=== PATIENT | female | born 1970 ===

== ENCOUNTER 2022-11-19 14:41 | Emergency (ER) | payer OTHER, SELFPAY ==
--- NOTE | ~2022-11-19 | XR_ITS ---
EXAMINATION: XR CHEST CLINICAL INFORMATION: Cough. COMPARISON: None TECHNIQUE: 2 views of the chest were obtained. FINDINGS: No significant abnormality is noted involving the heart, lungs, mediastinum, bony thorax or soft tissues. XR/XR chest 2V IMPRESSION: Unremarkable chest examination.
--- NOTE | 2022-11-19 14:55 | ED_ITS ---
HPI - General Adult General Chief complaint: Upper Respiratory Symptoms <KYLE Leggett - Last Filed: 11/19/22 14:57> Stated complaint: vomiting diarrhea weak rib pain <KYLE Leggett Last Filed: 11/19/22 14:57> Time Seen by Provider: 11/19/22 15:06 <KYLE Leggett Last Filed: 11/19/22 14:57> Source: patient <KYLE Mishra Last Filed: 11/19/22 16:44> Mode of arrival: ambulatory <KYLE Mishra Last Filed: 11/19/22 16:44> History of Present Illness HPI narrative: 52-year-old female with no significant past medical history presenting to the ED complaining dry cough, chills, subjective fever, myalgias, nausea, and vomiting x3 days with decreased p.o. intake. Reports SOB. Denies chest pain, d iarrhea, abdominal pain, dysuria/hematuria, recent travel, sick contacts. <KYLE Mishra Last Filed: 11/19/22 16:44> Onset (ago): day(s) <KYLE Mishra Last Filed: 11/19/22 16:44> Related Data Home medications: Previous Rx's Medication Instructions Recorded acetaminophen 500 mg tablet 500 mg PO Q6H PRN fever or pain 11/19/22 (Tylenol Extra Strength) #14 tabs benzonatate 100 mg capsule 100 mg PO TID PRN cough #14 caps 11/19/22 fluticasone propionate 50 2 spray intranasal DAILY #16 grams 11/19/22 mcg/actuation nasal spray,suspension (Flonase Allergy Relief) ondansetron 4 mg disintegrating 4 mg PO Q8H PRN nausea and 11/19/22 tablet vomiting #10 tabs <KYLE Leggett Last Filed: 11/19/22 14:57> Allergies/adverse reactions: Allergies Allergy/AdvReac Type Severity Reaction Status Date / Time No Known Allergies Allergy Verified 11/19/22 14:56 <KYLE Leggett Last Filed: 11/19/22 14:57> Review of Systems Review of Systems: Constitutional: +Subj Fever, + Chills, +Fatigue ENT/Mouth: No Ear Pain, No Nasal Congestion, No Sinus Pain, No Hoarseness, No sore throat, No Rhinorrhea, No Swallowing Difficulty Cardiovascular: No Chest Pain, + SOB Respiratory: + Cough, No Sputum, No Wheezing Gastrointestinal: + Nausea, + Vomiting, No Diarrhea, No Constipation, No Abdominal pain Genitourinary: No Dysuria, No Urinary Frequency, No Hematuria, No Flank Pain Musculoskeletal: No joint pain, + Myalgias, No Joint Swelling Skin: No Skin Lesions, No rash Neuro: No Weakness, No Numbness, No Paresthesias <KYLE Mishra - Last Filed: 11/19/22 16:44> Yes all other systems are reviewed and are negative <KYLE Mishra - Last Filed: 11/19/22 16:44> Constitutional: Constitutional: Reports as per HPI <KYLE Mishra - Last Filed: 11/19/22 16:44> PMFSH Past Medical History Attestation statement: The following information was validated with the patient. <KYLE Mishra - Last Filed: 11/19/22 16:44> Social History Social History: Social History Alcohol intake: unknown Smoked in Last 30 Days: No Use of substances other than those prescribed or required for medical reasons: Unknown Advance Directives: No Advance Directives Information Provided: No Patient : No <KYLE Leggett - Last Filed: 11/19/22 14:57> Physical Exam ED Vital Signs: Vital Signs - 24 hr 11/19/22 14:57 11/19/22 16:21 11/19/22 16:24 Temperature 97.0 F 98.2 F Pulse Rate 98 88 96 Respiratory Rate 18 18 20 Blood Pressure 133/88 136/84 Pulse Oximetry 100 99 Oxygen Delivery Method Room Air Room Air BMI result Body Mass Index 23.9 <KYLE Leggett - Last Filed: 11/19/22 14:57> Vital Signs - 24 hr 11/19/22 14:57 11/19/22 16:21 11/19/22 16:24 Temperature 97.0 F 98.2 F Pulse Rate 98 88 96 Respiratory Rate 18 18 20 Blood Pressure 133/88 136/84 Pulse Oximetry 100 99 Oxygen Delivery Method Room Air Room Air BMI result Body Mass Index 23.9 <KYLE Mishra - Last Filed: 11/19/22 16:44> Const General: cooperative, healthy appearing and no acute distress <KYLE Mishra - Last Filed: 11/19/22 16:44> Orientation/consciousness: patient oriented x3 <KYLE Mishra - Last Filed: 11/19/22 16:44> Limitations: no limitations <KYLE Mishra - Last Filed: 11/19/22 16:44> HENMT Head: Yes normal to inspection and Yes atraumatic <KYLE Mishra - Last Filed: 11/19/22 16:44> Ears: hearing grossly normal bilaterally <KYLE Mishra - Last Filed: 11/19/22 16:44> General nose exam: Normal external nose present <KYLE Mishra - Last Filed: 11/19/22 16:44> Face and sinus: Yes normal facial exam <KYLE Mishra - Last Filed: 11/19/22 16:44> Throat: Yes posterior oropharynx normal, Yes tonsils normal and Yes uvula midline <KYLE Mishra - Last Filed: 11/19/22 16:44> Eyes General: appearance normal, both eyes and all related structures <KYLE Mishra - Last Filed: 11/19/22 16:44> EOM: EOMs intact bilaterally <KYLE Mishra - Last Filed: 11/19/22 16:44> Neck Neck: Yes normal visual inspection and Yes no meningeal signs <KYLE Mishra - Last Filed: 11/19/22 16:44> Resp Effort & Inspection: normal respiratory effort and no respiratory distress <KYLE Mishra - Last Filed: 11/19/22 16:44> Auscultation: clear to auscultation bilaterally, no crackles, no rales, no rhonchi and no wheezes <KYLE Mishra Last Filed: 11/19/22 16:44> Cardio Rate: regular rate <KYLE Mishra - Last Filed: 11/19/22 16:44> Heart sounds: S1 normal heart sound present and S2 normal heart sound present <KYLE Mishra Last Filed: 11/19/22 16:44> GI Inspection: Yes normal to inspection <KYLE Mishra Last Filed: 11/19/22 16:44> Palpation (GI): Soft to palpation, Tenderness to palpation present (GI) in the epigastrum; with no rebound tenderness, no guarding and not rigid <KYLE Mishra Last Filed: 11/19/22 16:44> Skin Rashes: no rashes <KYLE Mishra Last Filed: 11/19/22 16:44> Wounds: no wounds <KYLE Mishra - Last Filed: 11/19/22 16:44> Neuro General: patient oriented x3, tone normal and no meningeal signs <KYLE Mishra Last Filed: 11/19/22 16:44> Gait exam (Neuro): Normal gait present <KYLE Mishra - Last Filed: 11/19/22 16:44> Extrem General: Yes normal to inspection, Yes no pedal edema and Yes no calf tenderness <KYLE Mishra Last Filed: 11/19/22 16:44> Course Course Course Narrative: RME performed by Sharon Anton PA-C. Patient is a 52 year old female presenting to the ED with chills, cough, and feeling generally unwell. CXR, labs, and swab ordered. Patient placed back in waiting room pending results and room availability. <KYLE Leggett Last Filed: 11/19/22 14:57> RME performed by Sharon Anton PA-C. Patient is a 52 year old female presenting to the ED with chills, cough, and feeling generally unwell. CXR, labs, and swab ordered. Patient placed back in waiting room pending results and room availability. -no leukocytosis. AST/ALT mildly elevated -influenza A positive XR chest 2V IMPRESSION: Unremarkable chest examination. -Patient reports symptomatic improvement after medications given in the ED. Is tolerating p.o. without nausea or vomiting -Results discussed with patient including worrisome signs and symptoms and strict return precautions, and when to return to the emergency department. They verbalized understanding and feel safe for discharge at this time. <KYLE Mishra - Last Filed: 11/19/22 16:44> Medications Administered Generic Name Dose Route Start Last Admin Trade Name Freq PRN Reason Stop Dose Admin Sodium Chloride 1,000 mls @ 999 mls/hr 11/19/22 15:45 11/19/22 16:07 Ns IV 11/19/22 16:45 999 mls/hr .Q1H1M MAYDA Administration Discontinued Medications Generic Name Dose Route Start Last Admin Trade Name Freq PRN Reason Stop Dose Admin Al Hydroxide/Mg Hydroxide 30 ml 11/19/22 15:59 11/19/22 16:07 Magnesium Hydrox/Alum Hydrox 30 Ml Oral.Susp PO 11/19/22 16:00 30 ml ONCE ONE Administration Albuterol Sulfate 4 puff 11/19/22 15:48 11/19/22 16:20 Albuterol Sulfate 90 Mcg 8 Gm Inhaler INHALE 11/19/22 15:49 4 puff ONCE ONE Administration Benzonatate 100 mg 11/19/22 15:33 11/19/22 16:08 Benzonatate 100 Mg Capsule PO 11/19/22 15:34 100 mg ONCE ONE Administration Famotidine 20 mg 11/19/22 15:59 11/19/22 16:07 Famotidine/Pf 20 Mg/2 Ml Vial IVPUSH 11/19/22 16:00 20 mg ONCE ONE Administration Hydrocodone Bit/Homatropine Methylb 5 ml 11/19/22 15:33 11/19/22 16:07 Hydrocodone/Homat 5/1.5/5 Ml 5 Ml Syrup PO 11/19/22 15:34 5 ml ONCE ONE Administration Ondansetron HCl 4 mg 11/19/22 15:32 11/19/22 16:07 Ondansetron Hcl 4 Mg/2 Ml Vial IVPUSH 11/19/22 15:33 4 mg ONCE ONE Administration <KYLE Leggett - Last Filed: 11/19/22 14:57> Medications Administered Generic Name Dose Route Start Last Admin Trade Name Freq PRN Reason Stop Dose Admin Sodium Chloride 1,000 mls @ 999 mls/hr 11/19/22 15:45 11/19/22 16:07 Ns IV 11/19/22 16:45 999 mls/hr .Q1H1M MAYDA Administration Discontinued Medications Generic Name Dose Route Start Last Admin Trade Name Aimee PRN Reason Stop Dose Admin Al Hydroxide/Mg Hydroxide 30 ml 11/19/22 15:59 11/19/22 16:07 Magnesium Hydrox/Alum Hydrox 30 Ml Oral.Susp PO 11/19/22 16:00 30 ml ONCE ONE Administration Albuterol Sulfate 4 puff 11/19/22 15:48 11/19/22 16:20 Albuterol Sulfate 90 Mcg 8 Gm Inhaler INHALE 11/19/22 15:49 4 puff ONCE ONE Administration Benzonatate 100 mg 11/19/22 15:33 11/19/22 16:08 Benzonatate 100 Mg Capsule PO 11/19/22 15:34 100 mg ONCE ONE Administration Famotidine 20 mg 11/19/22 15:59 11/19/22 16:07 Famotidine/Pf 20 Mg/2 Ml Vial IVPUSH 11/19/22 16:00 20 mg ONCE ONE Administration Hydrocodone Bit/Homatropine Methylb 5 ml 11/19/22 15:33 11/19/22 16:07 Hydrocodone/Homat 5/1.5/5 Ml 5 Ml Syrup PO 11/19/22 15:34 5 ml ONCE ONE Administration Ondansetron HCl 4 mg 11/19/22 15:32 11/19/22 16:07 Ondansetron Hcl 4 Mg/2 Ml Vial IVPUSH 11/19/22 15:33 4 mg ONCE ONE Administration <KYLE Mishra - Last Filed: 11/19/22 16:44> Medical Decision Making Medical Decision Making MDM Narrative: 52-year-old female with no significant past medical history presenting to the ED complaining dry cough, chills, subjective fever, myalgias, nausea, and vomiting x3 days with decreased p.o. intake. On exam vital signs stable, NAD/nontoxic appearing, lungs CTA, abdomen soft with mild epigastric abdominal pain, no rebound or guarding, no pedal edema. Concern for viral illness and gastroenteritis vs GERD/gastritis. Lower suspicion for cholecysti tis/cholelithiasis or pancreatitis. Low suspicion for pneumonia, PE, ACS or appendicitis/diverticulitis Plan: EKG, labs, UA, COVID-19/influenza/RSV testing, CXR, PO Hycodan, Tessalon Perles, albuterol, Zofran, p.o. challenge Please refer to course for remaining clinical decision making, interpretation of labs/imaging results, and discussions with consultants and/or family members. <KYLE Mishra - Last Filed: 11/19/22 16:44> Differential Diagnosis Differential Diagnoses: The differential diagnosis associated with the presentation includes <KYLE Mishra - Last Filed: 11/19/22 16:44> As above <KYLE Mishra - Last Filed: 11/19/22 16:44> Lab Data MDM Lab Attestation statement: I reviewed the patient's lab results. <KYLE Mishra - Last Filed: 11/19/22 16:44> Result Diagrams: 11/19/22 15:12 11/19/22 15:12 <KYLE Leggett - Last Filed: 11/19/22 14:57> Labs: Lab Results 11/19/22 11/19/22 11/19/22 Range/Units 15:12 15:12 15:12 WBC 5.5 (4.8-10.8) X10*3/uL RBC 5.15 (4.20-5.50) X10*6/uL Hgb 12.9 (12.0-16.0) g/dl Hct 40.7 (37.0-47.0) % MCV 79.0 L (80.0-98.0) fL MCH 25.0 L (27.0-33.0) pg MCHC 31.7 (31.0-35.0) g/dl RDW 14.3 (11.0-16.0) % Plt Count 220 (160-400) X10*3/uL MPV 12.1 (9.4-12.3) fL Immature Gran % (Auto) 0.2 (0.0-0.4) % Neut % (Auto) 55.8 (45-73) % Lymph % (Auto) 31.7 (20-40) % Ross % (Auto) 11.9 H (2-11) % Eos % (Auto) 0.2 (0-4) % Baso % (Auto) 0.2 (0-2) % Lymph # (Auto) 1.7 (1.2-4.9) X10*3/uL Ross # (Auto) 0.7 (0.1-1.2) X10*3/uL Eos # (Auto) 0.0 (0.0-0.4) X10*3/uL Baso # (Auto) 0.0 (0.0-0.2) X10*3/uL Abs Immat Gran (auto) 0.01 (0.00-0.03) X10*3/uL Absolute Neuts (auto) 3.1 (2.0-8.3) x10*3/uL Absolute Nucleated RBC 0.000 (0.0-0.012) X10*3/uL Nucleated RBC % (auto) 0.0 (0.0-0.2) /100WBC Sodium 140 (135-145) mmol/L Potassium 3.5 (3.3-5.1) mmol/L Chloride 107 (96-108) mmol/L Carbon Dioxide 22 (22-29) mmol/L Anion Gap 15 (12-20) BUN 13 (9-16) mg/dL Creatinine 0.74 (0.5-1.4) mg/dL Estim Creat Clear Calc 73.5 Estimated GFR > 60 Random Glucose 106 (60-115) mg/dL Calcium 9.2 (8.4-10.2) mg/dL Magnesium 1.8 (1.6-2.6) mg/dL Total Bilirubin 0.4 (0.0-1.0) mg/dL AST 96 H (5-31) U/L ALT 98 H (0-31) U/L Alkaline Phosphatase 98 (39-117) U/L Troponin I High Sens (<3.5-17.0) ng/L Total Protein 8.1 H (6.5-8.0) g/dL Albumin 4.4 (3.5-5.0) g/dL Lipase 14 (8-78) U/L Influenza Type A (PCR) POSITIVE A (Negative) Influenza Type B (PCR) NEGATIVE (Negative) RSV RNA Qual (PCR) NEGATIVE (Negative) SARS-CoV-2 RNA (RT-PCR) NEGATIVE (Negative) 11/19/22 Range/Units 15:12 WBC (4.8-10.8) X10*3/uL RBC (4.20-5.50) X10*6/uL Hgb (12.0-16.0) g/dl Hct (37.0-47.0) % MCV (80.0-98.0) fL MCH (27.0-33.0) pg MCHC (31.0-35.0) g/dl RDW (11.0-16.0) % Plt Count (160-400) X10*3/uL MPV (9.4-12.3) fL Immature Gran % (Auto) (0.0-0.4) % Neut % (Auto) (45-73) % Lymph % (Auto) (20-40) % Ross % (Auto) (2-11) % Eos % (Auto) (0-4) % Baso % (Auto) (0-2) % Lymph # (Auto) (1.2-4.9) X10*3/uL Ross # (Auto) (0.1-1.2) X10*3/uL Eos # (Auto) (0.0-0.4) X10*3/uL Baso # (Auto) (0.0-0.2) X10*3/uL Abs Immat Gran (auto) (0.00-0.03) X10*3/uL Absolute Neuts (auto) (2.0-8.3) x10*3/uL Absolute Nucleated RBC (0.0-0.012) X10*3/uL Nucleated RBC % (auto) (0.0-0.2) /100WBC Sodium (135-145) mmol/L Potassium (3.3-5.1) mmol/L Chloride (96-108) mmol/L Carbon Dioxide (22-29) mmol/L Anion Gap (12-20) BUN (9-16) mg/dL Creatinine (0.5-1.4) mg/dL Estim Creat Clear Calc Estimated GFR Random Glucose (60-115) mg/dL Calcium (8.4-10.2) mg/dL Magnesium (1.6-2.6) mg/dL Total Bilirubin (0.0-1.0) mg/dL AST (5-31) U/L ALT (0-31) U/L Alkaline Phosphatase (39-117) U/L Troponin I High Sens < 3.5 (<3.5-17.0) ng/L Total Protein (6.5-8.0) g/dL Albumin (3.5-5.0) g/dL Lipase (8-78) U/L Influenza Type A (PCR) (Negative) Influenza Type B (PCR) (Negative) RSV RNA Qual (PCR) (Negative) SARS-CoV-2 RNA (RT-PCR) (Negative) <KYLE Leggett - Last Filed: 11/19/22 14:57> Lab Results 11/19/22 11/19/22 11/19/22 Range/Units 15:12 15:12 15:12 WBC 5.5 (4.8-10.8) X10*3/uL RBC 5.15 (4.20-5.50) X10*6/uL Hgb 12.9 (12.0-16.0) g/dl Hct 40.7 (37.0-47.0) % MCV 79.0 L (80.0-98.0) fL MCH 25.0 L (27.0-33.0) pg MCHC 31.7 (31.0-35.0) g/dl RDW 14.3 (11.0-16.0) % Plt Count 220 (160-400) X10*3/uL MPV 12.1 (9.4-12.3) fL Immature Gran % (Auto) 0.2 (0.0-0.4) % Neut % (Auto) 55.8 (45-73) % Lymph % (Auto) 31.7 (20-40) % Ross % (Auto) 11.9 H (2-11) % Eos % (Auto) 0.2 (0-4) % Baso % (Auto) 0.2 (0-2) % Lymph # (Auto) 1.7 (1.2-4.9) X10*3/uL Ross # (Auto) 0.7 (0.1-1.2) X10*3/uL Eos # (Auto) 0.0 (0.0-0.4) X10*3/uL Baso # (Auto) 0.0 (0.0-0.2) X10*3/uL Abs Immat Gran (auto) 0.01 (0.00-0.03) X10*3/uL Absolute Neuts (auto) 3.1 (2.0-8.3) x10*3/uL Absolute Nucleated RBC 0.000 (0.0-0.012) X10*3/uL Nucleated RBC % (auto) 0.0 (0.0-0.2) /100WBC Sodium 140 (135-145) mmol/L Potassium 3.5 (3.3-5.1) mmol/L Chloride 107 (96-108) mmol/L Carbon Dioxide 22 (22-29) mmol/L Anion Gap 15 (12-20) BUN 13 (9-16) mg/dL Creatinine 0.74 (0.5-1.4) mg/dL Estim Creat Clear Calc 73.5 Estimated GFR > 60 Random Glucose 106 (60-115) mg/dL Calcium 9.2 (8.4-10.2) mg/dL Magnesium 1.8 (1.6-2.6) mg/dL Total Bilirubin 0.4 (0.0-1.0) mg/dL AST 96 H (5-31) U/L ALT 98 H (0-31) U/L Alkaline Phosphatase 98 (39-117) U/L Troponin I High Sens (<3.5-17.0) ng/L Total Protein 8.1 H (6.5-8.0) g/dL Albumin 4.4 (3.5-5.0) g/dL Lipase 14 (8-78) U/L Influenza Type A (PCR) POSITIVE A (Negative) Influenza Type B (PCR) NEGATIVE (Negative) RSV RNA Qual (PCR) NEGATIVE (Negative) SARS-CoV-2 RNA (RT-PCR) NEGATIVE (Negative) 11/19/22 Range/Units 15:12 WBC (4.8-10.8) X10*3/uL RBC (4.20-5.50) X10*6/uL Hgb (12.0-16.0) g/dl Hct (37.0-47.0) % MCV (80.0-98.0) fL MCH (27.0-33.0) pg MCHC (31.0-35.0) g/dl RDW (11.0-16.0) % Plt Count (160-400) X10*3/uL MPV (9.4-12.3) fL Immature Gran % (Auto) (0.0-0.4) % Neut % (Auto) (45-73) % Lymph % (Auto) (20-40) % Ross % (Auto) (2-11) % Eos % (Auto) (0-4) % Baso % (Auto) (0-2) % Lymph # (Auto) (1.2-4.9) X10*3/uL Ross # (Auto) (0.1-1.2) X10*3/uL Eos # (Auto) (0.0-0.4) X10*3/uL Baso # (Auto) (0.0-0.2) X10*3/uL Abs Immat Gran (auto) (0.00-0.03) X10*3/uL Absolute Neuts (auto) (2.0-8.3) x10*3/uL Absolute Nucleated RBC (0.0-0.012) X10*3/uL Nucleated RBC % (auto) (0.0-0.2) /100WBC Sodium (135-145) mmol/L Potassium (3.3-5.1) mmol/L Chloride (96-108) mmol/L Carbon Dioxide (22-29) mmol/L Anion Gap (12-20) BUN (9-16) mg/dL Creatinine (0.5-1.4) mg/dL Estim Creat Clear Calc Estimated GFR Random Glucose (60-115) mg/dL Calcium (8.4-10.2) mg/dL Magnesium (1.6-2.6) mg/dL Total Bilirubin (0.0-1.0) mg/dL AST (5-31) U/L ALT (0-31) U/L Alkaline Phosphatase (39-117) U/L Troponin I High Sens < 3.5 (<3.5-17.0) ng/L Total Protein (6.5-8.0) g/dL Albumin (3.5-5.0) g/dL Lipase (8-78) U/L Influenza Type A (PCR) (Negative) Influenza Type B (PCR) (Negative) RSV RNA Qual (PCR) (Negative) SARS-CoV-2 RNA (RT-PCR) (Negative) <KYLE Mishra Last Filed: 11/19/22 16:44> Independent Interpretation I performed an independent interpretation of an: EKG <KYLE Mishra - Last Filed: 11/19/22 16:44> Radiology Impression Discussion of test interpretation with radiology: I have reviewed the radiologist's reading. <KYLE Mishra - Last Filed: 11/19/22 16:44> Independent Historian Clinical information obtained from an independent historian. History obtained from or confirmed by: Spouse <KYLE Mishra - Last Filed: 11/19/22 16:44> Prescription Management I considered prescription management with: Pain Medication, Antiviral and Antibiotic <KYLE Mishra Last Filed: 11/19/22 16:44> Discharge Plan Discharge Clinical Impression: Influenza A <KYLE Leggett - Last Filed: 11/19/22 14:57> Patient Disposition: Home, Self-Care <KYLE Leggett - Last Filed: 11/19/22 14:57> Instructions: Influenza (ED) <KYLE Leggett - Last Filed: 11/19/22 14:57> Additional Instructions: You have the flu. Please stay hydrated. Rest. Avoid contact with elderly, people, and baby's Zofran as antinausea medication take as needed Tessalon Perles are for cough. Flonase is a nasal decongestant Please continue to follow cold instructions and wash your hands frequently. You may take Tylenol / Motrin as directed on the bottle for pain or fever. If you have constant or persistent shortness of breath, fever unresolved with medications, chest pain, or your unable to eat or drink please return to the ED - Stay away from others - WEAR A MASK if you are sick AND STAY HOME - Cover your mouth and nose with a tissue when you cough or sneeze. Dispose of tissues in a lined trash can and wash your hands immediately with soap and water for at least 20 seconds. If soap and water are not available, clean hands with alcohol-based hand sdv pilot/navigator/dds operator that contains at least 60% alcohol. - Clean your hands often with soap and water for at least 20 seconds - Avoid touching your eyes, nose and mouth with unwashed hands - Do not share dishes, drinking glasses, cups, eating utensils, towels, or bedding with other people in your home. After using these items, wash them thoroughly with soap and water or put in the manager photography. <KYLE Leggett - Last Filed: 11/19/22 14:57> Prescriptions: New acetaminophen [Tylenol Extra Strength] 500 mg tablet 500 mg PO Q6H PRN (Reason: fever or pain) Qty: 14 0RF benzonatate 100 mg capsule 100 mg PO TID PRN (Reason: cough) Qty: 14 0RF fluticasone propionate [Flonase Allergy Relief] 50 mcg/actuation spray,suspension 2 spray intranasal DAILY Qty: 16 0RF Rx Instructions: administer into each nostril ondansetron 4 mg tablet,disintegrating 4 mg PO Q8H PRN (Reason: nausea and vomiting) Qty: 10 0RF <KYLE Leggett - Last Filed: 11/19/22 14:57> Referrals: Physician,Unknown J [Primary Care Provider] - (as needed) <KYLE Leggett - Last Filed: 11/19/22 14:57>
[2022-11-19 14:57] VITALS: BP 133/88; PULSE 98; RESP 18; TEMP 36.1; O2SAT 100; BMI 23.9
[2022-11-19 15:25] LABS: MANUAL DIFF FLAG NO
[2022-11-19 15:27] LABS: Basophils Percent Auto 0.2 % (0-2); Eosinophils Percent Auto 0.2 % (0-4); Hematocrit 40.7 % (37.0-47.0); Hemoglobin 12.9 g/dl (12.0-16.0); Imm Gran Abs Auto 0.01 X10*3/uL (0.00-0.03); Imm Gran Pct Auto 0.2 % (0.0-0.4); Lymphocytes Absolute Auto 1.7 X10*3/uL (1.2-4.9); Lymphocytes Percent Auto 31.7 % (20-40); Mean Corpuscular HGB Conc 31.7 g/dl (31.0-35.0); Mean Platelet Volume 12.1 fL (9.4-12.3); Monocytes Absolute Auto 0.7 X10*3/uL (0.1-1.2); Monocytes Percent Auto 11.9 % (2-11); Neutrophils Absolute Auto 3.1 x10*3/uL (2.0-8.3); Neutrophils Percent Auto 55.8 % (45-73); Platelet Count 220 X10*3/uL (160-400); Red Blood Count 5.15 X10*6/uL (4.20-5.50); Red Cell Distribution Width 14.3 % (11.0-16.0); White Blood Count 5.5 X10*3/uL (4.8-10.8)
--- NOTE | 2022-11-19 15:32 | ECG_ITS ---
Test Reason : sob Blood Pressure : / mmHG Vent. Rate : 084 BPM Atrial Rate : 084 BPM P-R Int : 162 ms QRS Dur : 090 ms QT Int : 384 ms P-R-T Axes : 051 011 022 degrees QTc Int : 453 ms Normal sinus rhythm Minimal voltage criteria for LVH, may be normal variant ( [place] product ) Borderline ECG No previous ECGs available Referred By: Nohemi Mckeon Electronically Signed By:JOSH CHEEMA
[2022-11-19 15:47] LABS: Alanine Aminotransferase 98 U/L (0-31); Albumin Level 4.4 g/dL (3.5-5.0); Alkaline Phosphatase 98 U/L (39-117); Anion Gap 15 (12-20); Aspartate Amino Transferase 96 U/L (5-31); Bilirubin Total 0.4 mg/dL (0.0-1.0); Blood Urea Nitrogen 13 mg/dL (9-16); Calcium 9.2 mg/dL (8.4-10.2); Carbon Dioxide 22 mmol/L (22-29); Chloride 107 mmol/L (96-108); Creatinine Clr Calc Pharmacy 73.5; Estimated Glomerular Filt Rate > 60; Glucose Random 106 mg/dL (60-115); Magnesium 1.8 mg/dL (1.6-2.6); Potassium 3.5 mmol/L (3.3-5.1); Sodium 140 mmol/L (135-145); Total Protein 8.1 g/dL (6.5-8.0)
--- OUTSIDE RECORDS SUMMARY | 2022-11-19 16:01 | XMS_ITS | Continuity of Care Document ---
:1970 Author Organization [facility] Kerry Mendozas Sherifu p Address [address] [place] [address], [address] [place] [id number]- Care Team Providers Name Role Phone Not on Staff, PCP Primary Care Physician Unavailable Encounter [facility] [place] Date(s): 10/14/22 - 11/13/22 [facility] [address] [place] [address], [address] [place] [id number] Allergies, Adverse Reactions, Alerts No Known Allergies Immunizations Given and Recorded Vaccine Date Status Refusal Reason tetanus-diphtheria toxoids (Td)1 01/10/11 Given influenza virus vaccine, inactivated2 01/10/11 Given 1Admin Note: vis 04/22/942Admin Note: VIS 06/22/10 Medications ibuprofen 600 mg oral tablet 1 tablet = 600 mg, By Mouth, Every 6 hours, # 40 tablet, 0 Refills, Maintenance, 06/19/14 11:36:28, Tablet Start Date: 06/19/14 Status: Orderedoxycodone 5 mg oral tablet 1 tablet = 5 mg, By Mouth, Every 6 hours, PRN for pain, # 10 tablet, 0 Refills, Maintenance, 06/19/14 11:36:52, Tablet Start Date: 06/19/14 Status: OrderedProvera 10 mg oral tablet 1 tablet = 10 mg, By Mouth, Daily, # 10 tablet, 0 Refills, Maintenance, 05/19/15 16:40:32, 1 tablet By Mouth Daily,x10 days Start Date: 05/19/15 Stop Date: 05/29/15 Status: OrderedSeasonale 0.15 mg-30 mcg oral tablet 1 tablet, By Mouth, Daily, # 91 tablet, 0 Refills, Maintenance, 06/12/15 14:36:09, Tablet, 1 tablet By Mouth Daily Start Date: 06/12/15 Status: Orderedvaporizer vaporizer, See Instructions, # 1 each, Refills 0, Tot. Refills 0, Maintenance, nasal congestion: useas necessary, 01/24/11 15:25:40 Start Date: 01/24/11 Status: OrderedVitamin D3 50,000 intl units oral capsule 1 capsule = 50,000 International_Units, By Mouth, Every week, # 8 capsule, 0 Refills, Maintenance, 02/13/14 16:43:07, Capsule, 1 capsule By Mouth Every week,x8 week(s) Start Date: 02/13/14 Stop Date: 04/10/14 Status: Ordered Problem List Condition Confirmation Course Effective Dates Status Health Stat us Informant Healthy female Confirmed Active adult Social History Social History Type Response Smoking Status Former smoker; Other: quit a t age 25.; entered on: 05/19/15 Sex Patient Care team information Care Team PersonnelName: Not on Staff, PCP Position: S Physician (General Medicine) Member Role: PCP Care Team Related PersonsName: VIRGINIA CHRISTY Address: [address] [place] [id number]
[2022-11-19 16:03] LABS: Influenza A PCR POSITIVE (Negative); Influenza B PCR NEGATIVE (Negative); Resp Syncy Virus RNA Qual PCR NEGATIVE (Negative); SARS COV2 PCR INHOUSE NEGATIVE (Negative)
[2022-11-19] MEDS: 0.9 % Sodium Chloride 1,000 ML 999 ML IV (16:07)
[2022-11-19] MEDS: Famotidine/PF 20 MG/2 ML VIAL IVPUSH (16:07)
[2022-11-19] MEDS: Magnesium Hydrox/Alum Hydrox 30 ML ORAL.SUSP PO (16:07)
[2022-11-19] MEDS: ondansetron HCL 4 MG/2 ML VIAL IVPUSH (16:07)
[2022-11-19] MEDS: HYDROcodone/Homat 5/1.5/5 ML 5 ML SYRUP PO (16:07)
[2022-11-19] MEDS: Benzonatate 100 MG CAPSULE PO (16:08)
[2022-11-19] MEDS: Albuterol Sulfate 90 MCG 8 GM INHALER 4 PUFF INHALE (16:20)
[2022-11-19 16:21] VITALS: PULSE 88; RESP 18; O2SAT 99
[2022-11-19 16:22] LABS: Lipase 14 U/L (8-78)
[2022-11-19 16:24] VITALS: BP 136/84; PULSE 96; RESP 20; TEMP 36.8; O2SAT 99
[2022-11-19 16:34] LABS: Troponin-I High Sensitivity < 3.5 ng/L (<3.5-17.0)
== END 2022-11-19 17:16 | disposition home or self-care (01) ==
PROVIDERS: Physician Assistant; Physician Assistant Medical; Emergency Provider Emergency Medicine Emergency Medical Services
DX: J11.1 Influenza due to unidentified influenza virus with other respiratory manifestations (principal); Z20.822 Contact with and (suspected) exposure to COVID-19
CPT/HCPCS: 0241U; 71046; 80053; 83690; 83735; 84484; 85025; 93005; 94640; 94664; 96374; 96375; 99284; 99285; J2405

== ENCOUNTER 2023-04-29 22:11 | Emergency (ER) | payer OTHER, SELFPAY ==
[2023-04-29 22:13] VITALS: BP 125/68; PULSE 87; RESP 18; TEMP 36.1; O2SAT 98; BMI 24.8
[2023-04-29 22:44] VITALS: BP 128/83; PULSE 85; RESP 16; O2SAT 100
--- NOTE | 2023-04-29 23:27 | ED_ITS ---
HPI - General Adult General Chief complaint: Extremity Problem Stated complaint: right arm pain Time Seen by Provider: 04/29/23 23:26 Source: patient Mode of arrival: ambulatory Limitations: no limitations History of Present Illness HPI narrative: Patient is a 52 year old assigned female at with no reported medical history presenting to the emergency department today with right shoulder pain. Patient states that she slept on her right shoulder the wrong way 3 days ago and it has continued to bother her ever since. Patient denies any dizziness, lightheadedness, abdominal pain, nausea, vomiting, fever, chills, blurry vision, double vision, loss of vision, chest pain, difficulty breathing, shortness of breath, back pain, night sweats, pain with urination, increased urinary frequency, increased urinary urgency, blood in her urine or stool, syncope or a near syncopal episode, recent trauma or falls, bowel incontinence, bladder incontinence, bowel retention, bladder retention, or any other complaints at this time. Onset (ago): day(s) (3) Location: right and upper extremity Severity: mild Severity scale (1-10): 3 Quality: aching and dull Pain Consistency: intermittent Relieving factors: none Exacerbating factors: movement Associated symptoms: denies other symptoms Treatments prior to arrival: none Related Data Previous Rx's Medication Instructions Recorded acetaminophen 500 mg tablet 500 mg PO Q6H PRN fever or pain 11/19/22 (Tylenol Extra Strength) #14 tabs benzonatate 100 mg capsule 100 mg PO TID PRN cough #14 caps 11/19/22 fluticasone propionate 50 2 spray intranasal DAILY #16 grams 11/19/22 mcg/actuation nasal spray,suspension (Flonase Allergy Relief) ondansetron 4 mg disintegrating 4 mg PO Q8H PRN nausea and 11/19/22 tablet vomiting #10 tabs cyclobenzaprine 5 mg tablet 5 mg PO TID PRN muscle spasm 7 04/29/23 days #21 tabs prednisone 20 mg tablet 20 mg PO DAILY 7 days #7 tabs 04/29/23 Allergies Allergy/AdvReac Type Severity Reaction Status Date / Time No Known Allergies Allergy Verified 11/19/22 14:56 Review of Systems Constitutional: Constitutional: Reports no additional constitutional complaints, Denies chills, Denies fever(s) and Denies night sweats Eyes: Eyes: Reports no additional eye complaints, Denies blurry vision, Denies change in vision, Denies diplopia, Denies eye discharge, Denies loss of vision and Denies eye pain ENT: Denies dizziness Cardiovascular: Cardiovascular: Reports no additional cardiovascular complaints, Denies chest pain, Denies lightheadedness, Denies Loss of Consciousness and Denies dyspnea Respiratory: Respiratory: Reports no additional respiratory complaints and Denies dyspnea Gastrointestinal: Gastrointestinal: Reports no additional gastrointestinal complaints, Denies abdominal pain, Denies melena, Denies hematochezia, Denies change in bowel habits and Denies change in stool character Genitourinary: Genitourinary: Denies hematuria, Denies urinary frequency, Denies dysuria, Denies urinary incontinence, Denies urinary hesitancy and Denies urinary urgency Musculoskeletal: Musculoskeletal: Reports no additional musculoskeletal complaints, Denies numbness and Denies tingling Comments: right shoulder pain Neurologic: Denies dizziness, Denies loss of vision, Denies numbness and Denies tingling Psychiatric: Psychiatric: Reports no additional psychiatric complaints Endocrine: Endocrine: Reports no additional endocrine complaints Hematologic/Lymphatic: Hematologic/Lymphatic: Reports no additional hematologic/lymphatic complaints Allergic/Immunologic: Allergic/Immunologic: Reports no additional allergic/immunologic complaints PMFSH Past Medical History Attestation statement: The following information was validated with the patient. Source: old records reviewed and nursing notes reviewed Social History Social History Alcohol intake: unknown Smoked in Last 30 Days: No Advance Directives: No Advance Directives Information Provided: No Physical Exam ED Vital Signs: Vital Signs - 24 hr 04/29/23 22:13 04/29/23 22:44 Temperature 97 F Pulse Rate 87 85 Respiratory Rate 18 16 Blood Pressure 125/68 128/83 Pulse Oximetry 98 100 Oxygen Delivery Method Room Air Room Air BMI result Body Mass Index 24.8 Const General: cooperative, no acute distress, alert and awake Nutritional Appearance: well nourished Orientation/consciousness: patient oriented x3 Limitations: no limitations HENMT Head: Yes normal to inspection and Yes atraumatic Ears: hearing grossly normal bilaterally and external ears normal General nose exam: Normal external nose present, no nasal discharge noted and no epistaxis Face and sinus: Yes normal facial exam, No abrasion and No laceration Mouth: Normal oral and palatal mucosa present, no drooling and no muffled voice Eyes General: appearance normal, both eyes and all related structures Periorbital: periorbital findings normal Eyelids: Yes eyelids normal Conjunctivae: conjunctivae normal Pupils: Equal, round and reactive pupils present EOM: EOMs intact bilaterally Neck Neck: Yes normal visual inspection, Yes full ROM and Yes no lymphadenopathy Chest Chest palpation & inspection: normal inspection of the chest Resp Effort & Inspection: normal respiratory effort and able to speak in complete sentences GI Inspection: Yes normal to inspection Neuro General: patient oriented x3 and moves all extremities Cranial nerves: Yes Equal, round and reactive pupils present Cognition (Neuro): normal cognition Motor exam (neuro): 5/5 motor strength present throughout Sensory Exam: Normal double simultaneous stimulation for sensation Coordination: [id number] test normal Extrem General: Yes normal to inspection, Yes full ROM and Yes capillary refill normal Psych Appearance: grossly normal Mental Status: mental status grossly normal Affect: normal affect Attitude: cooperative Thought process: Normal thought process present Thought content: Normal thought content present Insight: Good insight present (Psych) Medications Administered Discontinued Medications Generic Name Dose Route Start Last Admin Trade Name Aimee PRN Reason Stop Dose Admin Cyclobenzaprine HCl 5 mg 04/29/23 23:37 04/30/23 00:06 Cyclobenzaprine Hcl 5 Mg Tablet PO 04/29/23 23:38 5 mg ONCE ONE Administration Ketorolac Tromethamine 15 mg 04/29/23 23:37 04/30/23 00:07 Ketorolac Tromethamine 15 Mg/Ml Vial IM 04/29/23 23:38 15 mg ONCE ONE Administration Prednisone 20 mg 04/29/23 23:37 04/30/23 00:06 Prednisone 20 Mg Tablet PO 04/29/23 23:38 20 mg ONCE ONE Administration Medical Decision Making Medical Decision Making [facility] Narrative: Patient is a 52 year old assigned female at with no reported medical history presenting to the emergency department today with right shoulder pain. Patient's physical exam was unremarkable. I explained my physical exam findings to the patient. I answered all questions asked by the patient. I stressed the importance of the patient taking her medication as prescribed. I stressed the importance of the patient following up with her primary care provider and an orthopedic provider. I stressed the importance of the patient returning to the emergency department immediately if her symptoms were to worsen or if she were to develop any dizziness, shortness of breath, difficulty breathing, chest pain, blurry vision, loss of vision, nausea, vomiting, abdominal pain, fever, chills, back pain, or any other complaints. Patient verbalized agreement and understanding with this treatment plan and discharge. Differential Diagnosis Differential Diagnoses: The differential diagnosis associated with the presentation includes right shoulder pain, cervical radiculopathy, rotator cuff injury Discharge Plan Discharge Clinical Impression: Cervical radiculopathy Patient Disposition: Home, Self-Care Instructions: Cervical Radiculopathy (ED) Additional Instructions: Follow up with your primary care provider and an orthopedic provider. Return to the emergency department immediately if your symptoms worsen or if you develop any dizziness, shortness of breath, difficulty breathing, chest pain, blurry vision, loss of vision, nausea, vomiting, abdominal pain, fever, chills, back pain, or any other complaints. Ricky un seguimiento con sharif proveedor de atenci?n primaria y un proveedor ortop?dico. Regrese al departamento de emergencias de inmediato si eunice s?ntomas empeoran o si presenta mareos, falta de aire, dificultad para respirar, dolor de pecho, visi?n borrosa, p?rdida de la visi?n, n?useas, v?mitos, dolor abdominal, fiebre, escalofr?os, dolor de espalda o cualquier otras quejas. Prescriptions: New cyclobenzaprine 5 mg tablet 5 mg PO TID PRN (Reason: muscle spasm) 7 Days Qty: 21 0RF prednisone 20 mg tablet 20 mg PO DAILY 7 Days Qty: 7 0RF No Action acetaminophen [Tylenol Extra Strength] 500 mg tablet 500 mg PO Q6H PRN (Reason: fever or pain) Qty: 14 0RF benzonatate 100 mg capsule 100 mg PO TID PRN (Reason: cough) Qty: 14 0RF fluticasone propionate [Flonase Allergy Relief] 50 mcg/actuation spray,suspension 2 spray intranasal DAILY Qty: 16 0RF Rx Instructions: administer into each nostril ondansetron 4 mg tablet,disintegrating 4 mg PO Q8H PRN (Reason: nausea and vomiting) Qty: 10 0RF Referrals: [facility] [place] Family Medicine [Provider Group] (Call to establish and follow up with a primary care provider. If you already have a primary care provider, please follow up with them. Llame para establecer y hacer un seguimiento con un proveedor de atenci?n primaria. Si ya tiene un proveedor de atenci?n primaria, ricky un seguimiento con ?l.) [facility] [place] Primary Care, [place] [Provider Group] (Call to establish and follow up with a primary care provider. If you already have a primary care provider, please follow up with them. Llame para establecer y hacer un seguimiento con un proveedor de atenci?n primaria. Si ya tiene un proveedor de atenci?n primaria, ricky un seguimiento con ?l.) [facility] [place] [facility] [Provider Group] (Call to establish and follow up with a primary care provider. If you already have a primary care provider, please follow up with them. Llame para establecer y hacer un seguimiento con un proveedor de atenci?n primaria. Si ya tiene un proveedor de atenci?n primaria, ricky un seguimiento con ?l.) [facility] [place] [facility] [Provider Group] (Call to establish and follow up with an orthopedic provider. Llame para establecer y hacer un seguimiento con un proveedor ortop?dico.) Stand Alone Forms: Work/School Release Interventions: ED Discharge Assessment Last Done: 04/30/23 00:15 Discharge Date/Time: 04/30/23 00:16 Print Language: Sinhala
[2023-04-30] MEDS: Cyclobenzaprine HCl 5 MG TABLET PO (00:06)
[2023-04-30] MEDS: predniSONE 20 MG TABLET PO (00:06)
[2023-04-30] MEDS: Ketorolac Tromethamine 15 MG/ML VIAL IM (00:07)
== END 2023-04-30 00:16 | disposition home or self-care (01) ==
PROVIDERS: Emergency Provider Emergency Medicine
DX: M54.12 Radiculopathy, cervical region (principal); Z79.899 Other long term (current) drug therapy
CPT/HCPCS: 96372; 99284; J1885

== ENCOUNTER 2024-04-16 18:43 | Emergency (ER) | payer MEDICAID, SELFPAY ==
--- NOTE | ~2024-04-16 | CT_ITS ---
EXAMINATION: CT ABDOMEN AND PELVIS WITH CONTRAST CLINICAL INFORMATION: Reason for Exam LLQ pain COMPARISON: None available. TECHNIQUE: Multidetector volumetric images were obtained from the superior aspect of the liver through the pubic symphysis following administration 85 mL of Omnipaque 350 intravenous contrast. Sagittal and coronal reformatted images were obtained on the technologist's workstation. Oral contrast: No This CT examination was performed using dose optimization techniques as appropriate, variously including the following: *Automated exposure control *Adjustment of mA and/or kV according to patient size (this includes techniques or standardized protocols for targeted exams where dose is matched to indication/reason for exam; i.e. extremities or head) *Use of iterative reconstruction technique DLP: 556 mGy-cm FINDINGS: LUNG BASES: Mild bibasilar atelectasis. LIVER, GALLBLADDER, AND BILIARY TREE: The liver is normal in size, shape, and attenuation. No focal hepatic lesion or biliary ductal dilatation is present. Patient is status post cholecystectomy. PANCREAS: Unremarkable. SPLEEN: Unremarkable. ADRENAL GLANDS: Unremarkable. KIDNEYS AND URETERS: Bilateral nephrograms are symmetric. No hydronephrosis or obstructing calculus identified. Small right upper pole renal cyst; no follow-up recommended. BLADDER: Unremarkable. GASTROINTESTINAL TRACT: There is a short segment of wall thickening in the distal descending colon in the presence of diverticula and surrounding stranding, most consistent with diverticulitis. No pericolonic abscess or free air is seen. Small volume of free fluid in the left paracolic gutter. No evidence of bowel obstruction. Patient is status post appendectomy. ABDOMINAL WALL: No significant hernia is appreciated. LYMPH NODES: Normal. VASCULAR: Unremarkable. PELVIC VISCERA: Small exophytic fibroid at the uterine fundus. OSSEOUS STRUCTURES: Scattered mild degenerative changes in the spine. CT/CT abdomen pelvis w IV con IMPRESSION: Diverticulitis of the distal descending colon. Correlation with recent or followup colonoscopy is advised to exclude an underlying mass lesion.
[2024-04-16 19:00] VITALS: BP 147/94; PULSE 100; RESP 16; TEMP 37.3; O2SAT 96; BMI 28.3
--- NOTE | 2024-04-16 19:02 | ED.GENADULT ---
HPI - General Adult General Chief complaint: Abdominal Pain Stated complaint: abdominal pain, chills Time Seen by Provider: 04/17/24 04:30 Related Data Previous Rx's ?Medication ?Instructions ?Recorded acetaminophen 500 mg tablet 500 mg PO Q6H PRN fever or pain 11/19/22 (Tylenol Extra Strength) #14 tabs benzonatate 100 mg capsule 100 mg PO TID PRN cough #14 caps 11/19/22 fluticasone propionate 50 2 spray intranasal DAILY #16 grams 11/19/22 mcg/actuation nasal spray,suspension (Flonase Allergy Relief) ondansetron 4 mg disintegrating 4 mg PO Q8H PRN nausea and 11/19/22 tablet vomiting #10 tabs cyclobenzaprine 5 mg tablet 5 mg PO TID PRN muscle spasm 7 04/29/23 days #21 tabs prednisone 20 mg tablet 20 mg PO DAILY 7 days #7 tabs 04/29/23 ketorolac 10 mg tablet 10 mg PO Q8H PRN pain #10 tabs 04/17/24 levofloxacin 500 mg tablet 500 mg PO DAILY #9 tabs 04/17/24 metronidazole 500 mg tablet 500 mg PO BID #19 tabs 04/17/24 polyethylene glycol 3350 17 17 g PO DAILY PRN laxative effect 04/17/24 gram/dose oral powder (Miralax) #238 grams Allergies Allergy/AdvReac Type Severity Reaction Status Date / Time No Known Allergies Allergy Verified 04/16/24 19:02 [facility] Past Medical History Medical History (Updated 04/17/24 @ 06:52 by Charis Ventura MD) Hypertension Social History Social History Alcohol intake: unknown Smoked in Last 30 Days: No Use of substances other than those prescribed or required for medical reasons: No Advance Directives: No Advance Directives Information Provided: No Do you have a plan to hurt others: No Plan Patient : No Physical Exam ED Vital Signs: Vital Signs - 24 hr 04/16/24 19:00 04/16/24 23:57 04/17/24 02:15 Temperature 99.2 F 99.1 F 99.1 F Pulse Rate 100 120 H 113 H Respiratory Rate 16 20 16 Blood Pressure 147/94 H 158/92 H 143/86 H Pulse Oximetry 96 96 98 Oxygen Delivery Method Room Air Room Air Room Air 04/17/24 06:26 04/17/24 07:05 Temperature 98.6 F 98.6 F Pulse Rate 89 89 Respiratory Rate 16 16 Blood Pressure 118/77 118/77 Pulse Oximetry 97 97 Oxygen Delivery Method Room Air Room Air BMI result Body Mass Index 28.3 Course Course Course Narrative: This is a Rapid Medical Examination (RME) performed by Eliot Bonilla PA-C in triage. Full HPI, ROS, assessment and treatment plan per primary provider in the Main ED. 53 yo female here for eval of acute lower abdominal pain that began at 3:00 a.m. this morning. Pain is constant in nature. normal BM. last BM this morning. passing flatus. no N/V. Denies dysuria, hematuria. hx of appendectomy. denies other abdominal surgery. TTP of RLQ and LLQ. no cvat. Plan: labs, UA ordered +/- imaging per primary provider Medications Administered Discontinued Medications Generic Name Dose Route Start Last Admin Trade Name Aimee PRN Reason Stop Dose Admin Iohexol 85 ml 04/17/24 05:01 04/17/24 05:02 Iohexol 350 Mg/Ml 100 Ml Infus..Btl IV 04/17/24 05:02 85 ml ONCE ONE Administration Ketorolac Tromethamine 30 mg 04/17/24 04:36 04/17/24 04:59 Ketorolac Tromethamine 30 Mg/Ml Vial IVPUSH 04/17/24 04:37 30 mg ONCE ONE Administration Levofloxacin 500 mg 04/17/24 06:49 04/17/24 07:01 Levofloxacin 500 Mg Tablet PO 04/17/24 06:50 500 mg ONCE ONE Administration Metronidazole 500 mg 04/17/24 06:49 04/17/24 07:01 Metronidazole 500 Mg Tablet PO 04/17/24 06:50 500 mg ONCE ONE Administration Medical Decision Making Lab Data 04/16/24 19:16 04/16/24 19:16 Labs: Lab Results 04/16/24 Range/Units 19:16 WBC 12.6 H (4.8-10.8) X10*3/uL RBC 4.55 (4.20-5.50) X10*6/uL Hgb 11.5 L (12.0-16.0) g/dl Hct 36.6 L (37.0-47.0) % MCV 80.4 (80.0-98.0) fL MCH 25.3 L (27.0-33.0) pg MCHC 31.4 (31.0-35.0) g/dl RDW 13.2 (11.0-16.0) % Plt Count 239 (160-400) X10*3/uL MPV 12.0 (9.4-12.3) fL Immature Gran % (Auto) 0.2 (0.0-0.4) % Neut % (Auto) 75.6 H (45-73) % Lymph % (Auto) 16.9 L (20-40) % Prentiss % (Auto) 6.3 (2-11) % Eos % (Auto) 0.7 (0-4) % Baso % (Auto) 0.3 (0-2) % Lymph # (Auto) 2.1 (1.2-4.9) X10*3/uL Prentiss # (Auto) 0.8 (0.1-1.2) X10*3/uL Eos # (Auto) 0.1 (0.0-0.4) X10*3/uL Baso # (Auto) 0.0 (0.0-0.2) X10*3/uL Abs Immat Gran (auto) 0.03 (0.00-0.03) X10*3/uL Absolute Neuts (auto) 9.5 H (2.0-8.3) x10*3/uL Absolute Nucleated RBC 0.000 (0.0-0.012) X10*3/uL Nucleated RBC % (auto) 0.0 (0.0-0.2) /100WBC Sodium 142 (135-145) mmol/L Potassium 3.9 (3.3-5.1) mmol/L Chloride 108 (96-108) mmol/L Carbon Dioxide 24 (22-29) mmol/L Anion Gap 14 (12-20) BUN 11 (9-16) mg/dL Creatinine 0.84 (0.5-1.4) mg/dL Estim Creat Clear Calc 73.9 Estimated GFR > 60 Random Glucose 159 H (60-115) mg/dL Calcium 9.3 (8.4-10.2) mg/dL Magnesium 1.8 (1.6-2.6) mg/dL Total Bilirubin 0.2 (0.0-1.0) mg/dL AST 21 (5-31) U/L ALT 19 (0-31) U/L Alkaline Phosphatase 86 (39-117) U/L Total Protein 7.6 (6.5-8.0) g/dL Albumin 4.3 (3.5-5.0) g/dL Lipase 16 (8-78) U/L Discharge Plan Discharge Clinical Impression: Diverticulitis Patient Disposition: Home, Self-Care Instructions: Diverticulitis (ED) Additional Instructions: Please follow-up with your primary care physician tomorrow. If you have any worsening or new symptoms, please return to the emergency room or call 911 Prescriptions: New levofloxacin 500 mg tablet 500 mg PO DAILY Qty: 9 0RF metronidazole 500 mg tablet 500 mg PO BID Qty: 19 0RF ketorolac 10 mg tablet 10 mg PO Q8H PRN (Reason: pain) Qty: 10 0RF Rx Instructions: maximum total duration of 5 days from all oral, intranasal, or parenteral formulations. Do not use this medication with NSAIDs, only Tylenol if needed polyethylene glycol 3350 [Miralax] 17 gram/dose powder 17 g PO DAILY PRN (Reason: laxative effect) Qty: 238 0RF No Action acetaminophen [Tylenol Extra Strength] 500 mg tablet 500 mg PO Q6H PRN (Reason: fever or pain) Qty: 14 0RF benzonatate 100 mg capsule 100 mg PO TID PRN (Reason: cough) Qty: 14 0RF fluticasone propionate [Flonase Allergy Relief] 50 mcg/actuation spray,suspension 2 spray intranasal DAILY Qty: 16 0RF Rx Instructions: administer into each nostril ondansetron 4 mg tablet,disintegrating 4 mg PO Q8H PRN (Reason: nausea and vomiting) Qty: 10 0RF cyclobenzaprine 5 mg tablet 5 mg PO TID PRN (Reason: muscle spasm) 7 Days Qty: 21 0RF prednisone 20 mg tablet 20 mg PO DAILY 7 Days Qty: 7 0RF Stand Alone Forms: Work/School Release Interventions: ED Discharge Assessment Last Done: 04/17/24 07:05 Discharge Date/Time: 04/17/24 07:05 Print Language: Bulgarian
[2024-04-16 19:20] LABS: MANUAL DIFF FLAG NO
[2024-04-16 19:36] LABS: Basophils Percent Auto 0.3 % (0-2); Eosinophils Absolute Auto 0.1 X10*3/uL (0.0-0.4); Eosinophils Percent Auto 0.7 % (0-4); Hematocrit 36.6 % (37.0-47.0); Hemoglobin 11.5 g/dl (12.0-16.0); Imm Gran Abs Auto 0.03 X10*3/uL (0.00-0.03); Imm Gran Pct Auto 0.2 % (0.0-0.4); Lymphocytes Absolute Auto 2.1 X10*3/uL (1.2-4.9); Lymphocytes Percent Auto 16.9 % (20-40); Mean Corpuscular HGB Conc 31.4 g/dl (31.0-35.0); Mean Corpuscular Hemoglobin 25.3 pg (27.0-33.0); Mean Corpuscular Volume 80.4 fL (80.0-98.0); Monocytes Absolute Auto 0.8 X10*3/uL (0.1-1.2); Monocytes Percent Auto 6.3 % (2-11); Neutrophils Absolute Auto 9.5 x10*3/uL (2.0-8.3); Neutrophils Percent Auto 75.6 % (45-73); Platelet Count 239 X10*3/uL (160-400); Red Blood Count 4.55 X10*6/uL (4.20-5.50); Red Cell Distribution Width 13.2 % (11.0-16.0); White Blood Count 12.6 X10*3/uL (4.8-10.8)
[2024-04-16 19:53] LABS: Alanine Aminotransferase 19 U/L (0-31); Albumin Level 4.3 g/dL (3.5-5.0); Alkaline Phosphatase 86 U/L (39-117); Anion Gap 14 (12-20); Aspartate Amino Transferase 21 U/L (5-31); Bilirubin Total 0.2 mg/dL (0.0-1.0); Blood Urea Nitrogen 11 mg/dL (9-16); Calcium 9.3 mg/dL (8.4-10.2); Carbon Dioxide 24 mmol/L (22-29); Chloride 108 mmol/L (96-108); Creatinine Clr Calc Pharmacy 73.9; Estimated Glomerular Filt Rate > 60; Glucose Random 159 mg/dL (60-115); Lipase 16 U/L (8-78); Magnesium 1.8 mg/dL (1.6-2.6); Potassium 3.9 mmol/L (3.3-5.1); Sodium 142 mmol/L (135-145); Total Protein 7.6 g/dL (6.5-8.0)
[2024-04-16 23:57] VITALS: BP 158/92; PULSE 120; RESP 20; TEMP 37.3; O2SAT 96
--- NOTE | 2024-04-17 01:17 | PC.NURSE ---
Assumed care of pt.
[2024-04-17 02:15] VITALS: BP 143/86; PULSE 113; RESP 16; TEMP 37.3; O2SAT 98
--- NOTE | 2024-04-17 04:34 | ED_ITS ---
HPI - Abdominal Pain General Chief Complaint: Abdominal Pain Stated Complaint: abdominal pain, chills Time Seen by Provider: 04/17/24 04:30 Source: patient Mode of arrival: ambulatory Limitations: no limitations History of Present Illness ED Provider: Dr. Charis Ventura HPI narrative: Patient comes to the emergency room complaining of couple of days of left lower quadrant pain. Patient states that she has history of appendectomy and cholecystectomy. The patient's pain radiates from the left lower quadrant to the right lower quadrant. Patient denies hematuria or dysuria. Related Data Previous Rx's ?Medication ?Instructions ?Recorded acetaminophen 500 mg tablet 500 mg PO Q6H PRN fever or pain 11/19/22 (Tylenol Extra Strength) #14 tabs benzonatate 100 mg capsule 100 mg PO TID PRN cough #14 caps 11/19/22 fluticasone propionate 50 2 spray intranasal DAILY #16 grams 11/19/22 mcg/actuation nasal spray,suspension (Flonase Allergy Relief) ondansetron 4 mg disintegrating 4 mg PO Q8H PRN nausea and 11/19/22 tablet vomiting #10 tabs cyclobenzaprine 5 mg tablet 5 mg PO TID PRN muscle spasm 7 04/29/23 days #21 tabs prednisone 20 mg tablet 20 mg PO DAILY 7 days #7 tabs 04/29/23 ketorolac 10 mg tablet 10 mg PO Q8H PRN pain #10 tabs 04/17/24 levofloxacin 500 mg tablet 500 mg PO DAILY #9 tabs 04/17/24 metronidazole 500 mg tablet 500 mg PO BID #19 tabs 04/17/24 polyethylene glycol 3350 17 17 g PO DAILY PRN laxative effect 04/17/24 gram/dose oral powder (Miralax) #238 grams Allergies Allergy/AdvReac Type Severity Reaction Status Date / Time No Known Allergies Allergy Verified 04/16/24 19:02 Review of Systems Review of Systems Constitutional : No Weight loss, No Fever, No Chills, No Night Sweats, No Fatigue, No Malaise ENT/Mouth : No Hearing loss, No Ear Pain, No Nasal Congestion, No Sinus Pain, No Hoarseness, No sore throat, No Rhinorrhea, No Swallowing Difficulty Eyes: No Eye Pain, No Swelling, No Redness, No Foreign Body, No Discharge, No Vision Changes Cardiovascular : No Chest Pain, No SOB, No Dyspnea on Exertion, No Orthopnea, No Edema, No Palpitations Respiratory : No Cough, No Sputum, No Wheezing, No Smoke Exposure, No Dyspnea Gastrointestinal : No Nausea, No Vomiting, No Diarrhea, No Constipation, complaining of left lower quadrant pain Genitourinary : no irregular bleeding, No Dysuria, No Urinary Frequency, No Hematuria, No Urinary Incontinence, No Urgency, No Flank Pain, No Urinary Flow Changes, No Hesitancy Musculoskeletal : No joint pain, No Myalgias, No Joint Swelling Skin : No Skin Lesions, No rash Neuro : No Weakness, No Numbness, No Paresthesias, No Loss of Consciousness, No Dizziness, No Headache Psych : No Anxiety/Panic, No Depression, No SI/HI/AH/VH, No Social Issues, Heme/Lymph: No Bruising, No Bleeding,No Lymphadenopathy Endocrine : No Polyuria, No Polydipsia, No Temperature Intolerance [facility] Past Medical History Medical History (Updated 04/17/24 @ 06:52 by Charis Ventura MD) Hypertension Social History Social History Alcohol intake: unknown Smoked in Last 30 Days: No Use of substances other than those prescribed or required for medical reasons: No Advance Directives: No Advance Directives Information Provided: No Do you have a plan to hurt others: No Plan Patient : No Physical Exam ED Vital Signs: Vital Signs - 24 hr 04/16/24 19:00 04/16/24 23:57 04/17/24 02:15 Temperature 99.2 F 99.1 F 99.1 F Pulse Rate 100 120 H 113 H Respiratory Rate 16 20 16 Blood Pressure 147/94 H 158/92 H 143/86 H Pulse Oximetry 96 96 98 Oxygen Delivery Method Room Air Room Air Room Air 04/17/24 06:26 Temperature 98.6 F Pulse Rate 89 Respiratory Rate 16 Blood Pressure 118/77 Pulse Oximetry 97 Oxygen Delivery Method Room Air BMI result Body Mass Index 28.3 Const Other: Appearance: Alert. Oriented X3. No acute distress. Eyes: Pupils equal, round and reactive to light. ENT: Pharynx normal. Neck: Normal inspection. Neck supple. No lymph nodes noted. No crepitus CVS: Normal heart rate and rhythm. Pulses normal. Normal S1 and S2 Respiratory: No respiratory distress. Breath sounds normal. No Wheezing. No rales Abdomen: Soft , pain to palpation over the left lower quadrant, no rebound or guarding. No rigidity. No distention. Skin: Skin warm and dry. Normal skin color. Normal skin turgor. Extremities: No lower extremity edema. No Lacerations. No Rash Neuro: Oriented X 3. No motor deficit. No sensory deficit. Moving all extremities. No slurred speech. CN 2 through 12 grossly intact Psych: calm, cooperative, normal affect Medical Decision Making Medical Decision Making [facility] Narrative: -patient's chemistry within normal limits, no obvious abnormalities. Patient's white blood cell count slightly elevated at 12.6. -patient receiving IV fluids, ketorolac -CT scan my interpretation: No SBO, no perforation -radiology report, diverticulitis -patient states that she feels well going home, discussed with the patient went to return to emergency room. -patient was given p.o. Levaquin and metronidazole. Differential Diagnosis Differential Diagnoses: The differential diagnosis associated with the presentation includes (As above) Admission/Observation Consideration of admission/observation: Escalation of care including admission/observation considered (Given patient's presentation, admission/observation considered) Lab Data [facility] Lab Attestation statement: I reviewed the patient's lab results. 04/16/24 19:16 04/16/24 19:16 Labs: Lab Results 04/16/24 Range/Units 19:16 WBC 12.6 H (4.8-10.8) X10*3/uL RBC 4.55 (4.20-5.50) X10*6/uL Hgb 11.5 L (12.0-16.0) g/dl Hct 36.6 L (37.0-47.0) % MCV 80.4 (80.0-98.0) fL MCH 25.3 L (27.0-33.0) pg MCHC 31.4 (31.0-35.0) g/dl RDW 13.2 (11.0-16.0) % Plt Count 239 (160-400) X10*3/uL MPV 12.0 (9.4-12.3) fL Immature Gran % (Auto) 0.2 (0.0-0.4) % Neut % (Auto) 75.6 H (45-73) % Lymph % (Auto) 16.9 L (20-40) % Pitkin % (Auto) 6.3 (2-11) % Eos % (Auto) 0.7 (0-4) % Baso % (Auto) 0.3 (0-2) % Lymph # (Auto) 2.1 (1.2-4.9) X10*3/uL Pitkin # (Auto) 0.8 (0.1-1.2) X10*3/uL Eos # (Auto) 0.1 (0.0-0.4) X10*3/uL Baso # (Auto) 0.0 (0.0-0.2) X10*3/uL Abs Immat Gran (auto) 0.03 (0.00-0.03) X10*3/uL Absolute Neuts (auto) 9.5 H (2.0-8.3) x10*3/uL Absolute Nucleated RBC 0.000 (0.0-0.012) X10*3/uL Nucleated RBC % (auto) 0.0 (0.0-0.2) /100WBC Sodium 142 (135-145) mmol/L Potassium 3.9 (3.3-5.1) mmol/L Chloride 108 (96-108) mmol/L Carbon Dioxide 24 (22-29) mmol/L Anion Gap 14 (12-20) BUN 11 (9-16) mg/dL Creatinine 0.84 (0.5-1.4) mg/dL Estim Creat Clear Calc 73.9 Estimated GFR > 60 Random Glucose 159 H (60-115) mg/dL Calcium 9.3 (8.4-10.2) mg/dL Magnesium 1.8 (1.6-2.6) mg/dL Total Bilirubin 0.2 (0.0-1.0) mg/dL AST 21 (5-31) U/L ALT 19 (0-31) U/L Alkaline Phosphatase 86 (39-117) U/L Total Protein 7.6 (6.5-8.0) g/dL Albumin 4.3 (3.5-5.0) g/dL Lipase 16 (8-78) U/L Independent Interpretation I performed an independent interpretation of an: CT Scan Radiology Impression Discussion of test interpretation with radiology: I have reviewed the radiologist's reading. Radiologist Impression: FINDINGS: LUNG BASES: Mild bibasilar atelectasis. LIVER, GALLBLADDER, AND BILIARY TREE: The liver is normal in size, shape, and attenuation. No focal hepatic lesion or biliary ductal dilatation is present. Patient is status post cholecystectomy. PANCREAS: Unremarkable. SPLEEN: Unremarkable. ADRENAL GLANDS: Unremarkable. KIDNEYS AND URETERS: Bilateral nephrograms are symmetric. No hydronephrosis or obstructing calculus identified. Small right upper pole renal cyst; no follow-up recommended. BLADDER: Unremarkable. GASTROINTESTINAL TRACT: There is a short segment of wall thickening in the distal descending colon in the presence of diverticula and surrounding stranding, most consistent with diverticulitis. No pericolonic abscess or free air is seen. Small volume of free fluid in the left paracolic gutter. No evidence of bowel obstruction. Patient is status post appendectomy. ABDOMINAL WALL: No significant hernia is appreciated. LYMPH NODES: Normal. VASCULAR: Unremarkable. PELVIC VISCERA: Small exophytic fibroid at the uterine fundus. OSSEOUS STRUCTURES: Scattered mild degenerative changes in the spine. CT/CT abdomen pelvis w IV con IMPRESSION: Diverticulitis of the distal descending colon. Correlation with recent or followup colonoscopy is advised to exclude an underlying mass lesion. Medications Administered Discontinued Medications Generic Name Dose Route Start Last Admin Trade Name Freq PRN Reason Stop Dose Admin Iohexol 85 ml 04/17/24 05:01 04/17/24 05:02 Iohexol 350 Mg/Ml 100 Ml Infus..Btl IV 04/17/24 05:02 85 ml ONCE ONE Administration Ketorolac Tromethamine 30 mg 04/17/24 04:36 04/17/24 04:59 Ketorolac Tromethamine 30 Mg/Ml Vial IVPUSH 04/17/24 04:37 30 mg ONCE ONE Administration Critical Care Time Critical Care Time Critical Care Time: Yes Total Critical Care Time: 60 Attestation: I have personally provided critical care time. Time includes review of lab data, radiology results, discussion with consultants, and monitoring for potential decompensation. Intervention performed as documented. Discharge Plan Discharge Clinical Impression: Diverticulitis Patient Disposition: Home, Self-Care Instructions: Diverticulitis (ED) Additional Instructions: Please follow-up with your primary care physician tomorrow. If you have any worsening or new symptoms, please return to the emergency room or call 911 Prescriptions: New levofloxacin 500 mg tablet 500 mg PO DAILY Qty: 9 0RF metronidazole 500 mg tablet 500 mg PO BID Qty: 19 0RF ketorolac 10 mg tablet 10 mg PO Q8H PRN (Reason: pain) Qty: 10 0RF Rx Instructions: maximum total duration of 5 days from all oral, intranasal, or parenteral formulations. Do not use this medication with NSAIDs, only Tylenol if needed polyethylene glycol 3350 [Miralax] 17 gram/dose powder 17 g PO DAILY PRN (Reason: laxative effect) Qty: 238 0RF No Action acetaminophen [Tylenol Extra Strength] 500 mg tablet 500 mg PO Q6H PRN (Reason: fever or pain) Qty: 14 0RF benzonatate 100 mg capsule 100 mg PO TID PRN (Reason: cough) Qty: 14 0RF fluticasone propionate [Flonase Allergy Relief] 50 mcg/actuation spray,suspension 2 spray intranasal DAILY Qty: 16 0RF Rx Instructions: administer into each nostril ondansetron 4 mg tablet,disintegrating 4 mg PO Q8H PRN (Reason: nausea and vomiting) Qty: 10 0RF cyclobenzaprine 5 mg tablet 5 mg PO TID PRN (Reason: muscle spasm) 7 Days Qty: 21 0RF prednisone 20 mg tablet 20 mg PO DAILY 7 Days Qty: 7 0RF Stand Alone Forms: Work/School Release Print Language: Occitan
[2024-04-17] MEDS: Ketorolac Tromethamine 30 MG/ML VIAL IVPUSH (04:59)
[2024-04-17] MEDS: iohexoL 350 MG/ML 100 ML INFUS..BTL 85 ML IV (05:02)
[2024-04-17 06:26] VITALS: BP 118/77; PULSE 89; RESP 16; TEMP 37; O2SAT 97
[2024-04-17] MEDS: levoFLOXacin 500 MG TABLET PO (07:01)
[2024-04-17] MEDS: metroNIDAZOLE 500 MG TABLET PO (07:01)
[2024-04-17 07:05] VITALS: BP 118/77; PULSE 89; RESP 16; TEMP 37; O2SAT 97
--- OUTSIDE RECORDS SUMMARY | 2024-04-19 10:02 | XMS_ITS | Continuity of Care Document ---
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 Phone Not on Staff, PCP Primary Care Physician Unavail able Encounter [facility] [place] Date(s): 11/03/22 - 12/03/[address] [address]- Attending Physician: Javier Negro Admitting Physician: Javier Negro Referring Physician: AdmtrJavier Allergies, Adverse Reactions, Alerts No Known Allergies Immunizations Given and Recorded Vaccine Date Status Refusal Reason tetanus-diphtheria toxoids (Td) 1 01/10/11 Given influenza virus vaccine, inactivated 2 01/10/11 Gi bertha 1Admin Note: vis 04/22/94 2Admin Note: VIS 06/22/10 Medications ibuprofen 600 mg oral tablet 1 tablet = 600 mg, By Mouth, Every 6 hours, # 40 tablet, 0 Refills, Maintenance, 06/19/14 11:36:28,Tablet Start Date: 06/19/14 Status: Ordered oxycodone 5 mg oral tablet 1 tablet = 5 mg, By Mouth, Every 6 hours, PRN for pain, # 10 tablet, 0 Refills, Maintenance, 06/19/14 11:36:52, Tablet Start Date: 06/19/14 Status: Ordered Provera 10 mg oral tablet 1 tablet = 10 mg, By Mouth, Daily, # 10 tablet, 0 Refills, Maintenance, 05/19/15 16:40:32, 1 tabletBy Mouth Daily,x10 days Start Date: 05/19/15 Stop Date: 05/29/15 Status: Ordered Seasonale 0.15 mg-30 mcg oral tablet 1 tablet, By Mouth, Daily, # 91 tablet, 0 Refills, Maintenance, 06/12/15 14:36:09, Tablet, 1 tabletBy Mouth Daily Start Date: 06/12/15 Status: Ordered vaporizer vaporizer, See Instructions, # 1 each, Refills 0, Tot. Refills 0, Maintenance, nasal congestion: use as necessary, 01/24/11 15:25:40 Start Date: 01/24/11 Status: Ordered Vitamin D3 50,000 intl units oral capsule 1 capsule = 50,000 International_Units, By Mouth, Every week, # 8 capsule, 0 Refills, Maintenance, 02/13/14 16:43:07, Capsule, 1 capsule By Mouth Every week,x8 week(s) Start Date: 02/13/14 Stop Date: 04/10/14 Status: Ordered Problem List Condition Confirmation Course Effective Dates Status Health St atus Informant Healthy female adult Confirmed Active Social History Social History Type Response Smoking Status Former smoker; Other : quit at age 25.; entered on: 05/19/15 Sex Patient Care team information Care Team Personnel Name: Not on Staff, PCP Position: [facility] Physician (General Medicine) Member Role: PCP Care Team Related Persons Name: WESTLEY VIRGINIA Address: home [address] [place] [id number]
--- OUTSIDE RECORDS SUMMARY | 2024-04-19 10:02 | XMS_ITS | Continuity of Care Document ---
Author Organization [facility] Address [address] [place] [id number]- Care Team Providers Care Egg Smeller Name Role Phone Shubham Friedman Primary Care Physician Encounter [facility] Date(s): 05/02/23 - 05/02/[address] [address]- Discharge Disposition: A-Error Chart/Home (ED Only) Attending Physician: Not on Staff, Attending MD Admitting Physician: Not on Staff, Admitting MD Referring Physician: Not on Staff, Referring MD Allergies, Adverse Reactions, Alerts No Known Allergies [...] Care team information Care Team Personnel Name: Shubham Friedman Position: S Outreach Member Role: PCP Address: Address: [address] [place] [address]- Care Team Related Persons Name: CHRISTYVIRGINIA Address: home [address] [place] [address]
== END 2024-04-17 07:05 | disposition home or self-care (01) ==
PROVIDERS: Physician Assistant Medical; Emergency Provider Emergency Medicine
DX: K57.92 Diverticulitis of intestine, part unspecified, without perforation or abscess without bleeding (principal); I10 Essential (primary) hypertension
CPT/HCPCS: 36415; 74177; 80053; 83690; 83735; 85025; 96374; 99284; J1885; Q9967

== ENCOUNTER 2024-08-07 11:29 | Emergency (ER) | payer MEDICAID, SELFPAY ==
--- NOTE | 2024-08-07 11:51 | ED_ITS ---
HPI - Skin/Abscess/Foreign Bdy General Chief complaint: Wound/Laceration Stated complaint: r finger lac Time Seen by Provider: 08/07/24 15:15 Source: patient Mode of arrival: ambulatory Limitations: no limitations History of Present Illness HPI narrative: This is a 54-year-old woman with a past medical history of hypertension, history of diverticulitis who presents for evaluation of right hand injury. Patient re ports that she was throwing away a broken mop pole and that the edges of the broken pole cut her hand accidentally. She states that she is unsure of her last tetanus immunization. She states her only injury are the cuts to the fingers on her left hand. She states no paresthesias. Related Data Previous Rx's ?Medication ?Instructions ?Recorded acetaminophen 500 mg tablet 500 mg PO Q6H PRN fever or pain 11/19/22 (Tylenol Extra Strength) #14 tabs benzonatate 100 mg capsule 100 mg PO TID PRN cough #14 caps 11/19/22 fluticasone propionate 50 2 spray intranasal DAILY #16 grams 11/19/22 mcg/actuation nasal spray,suspension (Flonase Allergy Relief) ondansetron 4 mg disintegrating 4 mg PO Q8H PRN nausea and 11/19/22 tablet vomiting #10 tabs cyclobenzaprine 5 mg tablet 5 mg PO TID PRN muscle spasm 7 04/29/23 days #21 tabs prednisone 20 mg tablet 20 mg PO DAILY 7 days #7 tabs 04/29/23 ketorolac 10 mg tablet 10 mg PO Q8H PRN pain #10 tabs 04/17/24 levofloxacin 500 mg tablet 500 mg PO DAILY #9 tabs 04/17/24 metronidazole 500 mg tablet 500 mg PO BID #19 tabs 04/17/24 polyethylene glycol 3350 17 17 g PO DAILY PRN laxative effect 04/17/24 gram/dose oral powder (Miralax) #238 grams Allergies Allergy/AdvReac Type Severity Reaction Status Date / Time No Known Allergies Allergy Verified 08/07/24 11:53 Review of Systems Review of Systems: ROS as per HPI [facility] Past Medical History Medical History (Updated 08/07/24 @ 15:54 by Amos Littlejohn MD) Hypertension Social History Social History Alcohol intake: unknown Advance Directives: No Advance Directives Information Provided: No Physical Exam Vital Signs: Vital Signs: Last Vital Signs Temp 98.2 F 08/07/24 11:52 Pulse 87 08/07/24 11:52 Resp 16 08/07/24 11:52 BP 149/94 H 08/07/24 11:52 Pulse Ox 97 08/07/24 11:52 O2 Del Method Room Air 08/07/24 11:52 BMI result Body Mass Index 26.6 Gen: NAD, AOx3 HEENT: NCAT, EOMI, normal conjunctiva CV: RRR, 2+ bilateral radial pulses Pulm: CTAB, no increased work of breathing GI: Soft, NTND, no rebound, guarding or rigidity Neuro: Grossly non focal, sensation intact to bilateral upper extremity dermatomes C6-C8 MSK: Intact motor function to the bilateral upper radial/ulnar/median/anterior interosseous nerves Skin: Approximate 0.5 cm horizontal lacerations to the palmar aspect distal right hand digits 3 through 5 Course Course Course Narrative: This is a Rapid Medical Exam performed in triage by Nohemi Mckeon PA-C. Full HPI, ROS and PE to be performed by primary ED provider. 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 Tetanus unknown. PE: +active bleeding w/lacerations noted to palmar aspect R 3-5th digits. Plan: wound repair, TDAP Medications Administered Discontinued Medications Generic Name Dose Route Start Last Admin Trade Name Freq PRN Reason Stop Dose Admin Bacitracin 1 appl 08/07/24 15:41 08/07/24 16:13 Bacitracin Oint 0.9 Gm Packet TOPICAL 08/07/24 15:42 1 appl ONCE ONE Administration Protocol Diphtheria/Tetanus/Acell Pertussis 0.5 ml 08/07/24 11:53 08/07/24 16:14 Diphth,Pertus(Acell),Tet Adult 0.5 Ml Syringe IM 08/07/24 11:54 0.5 ml .ONCE ONE Administration Ondansetron HCl 8 mg 08/07/24 15:43 08/07/24 16:13 Ondansetron Odt 8 Mg Tab.Rapdis TRANSLINGU 08/07/24 15:44 8 mg ONCE ONE Administration Medical Decision Making Medical Decision Making [facility] Narrative: Differential diagnosis includes, but is not limited to laceration, abrasion Patient is afebrile and hemodynamically stable on room air. Exam is benign and reassuring. The affected upper extremities neurovascularly intact. Laceration is repaired (see above procedure note for details). Patient develops nausea/vomiting shortly after laceration repair is complete. She is provided 8 mg sublingual Zofran ODT with good effect. On re-examination, patient is well-appearing and in no acute distress. ?Patient states symptoms have resolved. ?There is no indication for further emergent evaluation in this otherwise well-appearing patient as above. ?Patient is provided written and verbal instructions, educational materials, recommendations for outpatient follow-up, strict return precautions and teach back is performed. ?Patient states understanding and agreement with plan of care. ?Patient is discharged home in stable and improved condition. Admission/Observation Consideration of admission/observation: Escalation of care including admission/observation considered Procedures Laceration Laceration 1: Site: hand Side (If applicable): right Size (cm): 0.5 Description: linear and clean Depth: simple, single layer Local Anesthetic: lidocaine 1% Amount of anesthesia used (mL): 3 Pre-repair: wound explored and irrigated extensively Skin layer closed with: nylon Size (cm): 4-0 Number of sutures: 3 Technique: other (1 simple interrupted, 2 figure of eight) Laceration 2: Site: hand Side (If applicable): right Size (cm): 0.5 Description: linear and clean Depth: simple, single layer Local Anesthetic: lidocaine 1% Amount of anesthesia used (mL): 3 Pre-repair: wound explored and irrigated extensively Skin layer closed with: nylon Size (cm): 4-0 Number of sutures: 3 Technique: simple, interrupted Laceration 3: Site: hand Side (If applicable): right Size (cm): 0.5 Description: linear and clean Depth: simple, single layer Local Anesthetic: lidocaine 1% Amount of anesthesia used (mL): 3 Skin layer closed with: nylon Size (cm): 4-0 Technique: simple, interrupted Discharge Plan Discharge Clinical Impression: Laceration Patient Disposition: Home, Self-Care Instructions: Care For Your Stitches (ED) Additional Instructions: You were evaluated in the emergency room for laceration. Your laceration was repaired with stitches. Please keep your incision dry for 24 hours. After 24 hours, please start washing your wound 2 to 3 times per day with soap and water. After your 1st wash, please begin applying a triple antibiotic ointment (such as Neosporin) after each wash. Please return to the emergency room, your primary care doctor or urgent care for removal of stitches in 7 days. Please return to the emergency room with any new symptoms or injuries including, but not limited to increasing pain, redness, swelling or drainage of pus from your wounds. Lo evaluaron en la patti de emergencias por eva laceraci?n. Tu laceraci?n fue reparada con puntos. Mantenga sharif incisi?n seca stacey 24 horas. Despu?s de 24 horas, comience a owen la herida de 2 a 3 veces al d?a con agua y jab?n. Despu?s del primer lavado, comience a aplicar eva pomada antibi?syed triple (leoncio Neosporin) despu?s de cada lavado. Regrese a la patti de emergencias, a sharif m?dico de atenci?n primaria o a atenci?n de urgencia para que le retiren los puntos en 7 d?as. Regrese a la patti de emergencias si presenta cualquier s?ntoma o lesi?n nuevos, incluidos, entre otros, aumento del dolor, enrojecimiento, hinchaz?n o drenaje de pus de las heridas. Prescriptions: No Action acetaminophen [Tylenol Extra Strength] 500 mg tablet 500 mg PO Q6H PRN (Reason: fever or pain) Qty: 14 0RF benzonatate 100 mg capsule 100 mg PO TID PRN (Reason: cough) Qty: 14 0RF fluticasone propionate [Flonase Allergy Relief] 50 mcg/actuation spray,suspension 2 spray intranasal DAILY Qty: 16 0RF Rx Instructions: administer into each nostril ondansetron 4 mg tablet,disintegrating 4 mg PO Q8H PRN (Reason: nausea and vomiting) Qty: 10 0RF levofloxacin 500 mg tablet 500 mg PO DAILY Qty: 9 0RF metronidazole 500 mg tablet 500 mg PO BID Qty: 19 0RF ketorolac 10 mg tablet 10 mg PO Q8H PRN (Reason: pain) Qty: 10 0RF Rx Instructions: maximum total duration of 5 days from all oral, intranasal, or parenteral formulations. Do not use this medication with NSAIDs, only Tylenol if needed polyethylene glycol 3350 [Miralax] 17 gram/dose powder 17 g PO DAILY PRN (Reason: laxative effect) Qty: 238 0RF cyclobenzaprine 5 mg tablet 5 mg PO TID PRN (Reason: muscle spasm) 7 Days Qty: 21 0RF prednisone 20 mg tablet 20 mg PO DAILY 7 Days Qty: 7 0RF Print Language: Malaysian
[2024-08-07 11:52] VITALS: BP 149/94; PULSE 87; RESP 16; TEMP 36.8; O2SAT 97; BMI 26.6
[2024-08-07] MEDS: Ondansetron ODT 8 MG TAB.RAPDIS TRANSLINGU (16:13)
[2024-08-07] MEDS: Bacitracin Oint 0.9 GM PACKET 1 APPL TOPICAL (16:13)
[2024-08-07] MEDS: Diphth,Pertus(ACell),Tet Adult 0.5 ML SYRINGE IM (16:14)
[2024-08-07] MEDS: Lidocaine HCl 1 % 20 ML VIAL 5 ML INFILTRATI ×2 (16:34)
== END 2024-08-07 16:37 | disposition home or self-care (01) ==
PROVIDERS: Emergency Provider Emergency Medicine
DX: S61.411A Laceration without foreign body of right hand, initial encounter (principal); W26.8XXA Contact with other sharp object(s), not elsewhere classified, initial encounter; Z23 Encounter for immunization; Y93.89 Activity, other specified; Y92.018 Other place in single-family (private) house as the place of occurrence of the external cause; Y99.9 Unspecified external cause status
CPT/HCPCS: 12001; 90471; 90715; 99281; 99284

== ENCOUNTER 2024-10-21 08:28 | Emergency (ER) | payer MEDICAID, SELFPAY ==
--- NOTE | ~2024-10-21 | XR_ITS ---
EXAMINATION: XR CHEST CLINICAL INFORMATION: Cough. COMPARISON: 11/19/2022 medications TECHNIQUE: 2 views of the chest were obtained. FINDINGS: There is no gross pneumothorax. Heart size within normal limits. Surgical clips right upper quadrant. Mild multilevel degenerative changes in the thoracic spine. No significant pleural effusion. No focal consolidation. XR/XR chest 2V IMPRESSION: No focal consolidation. No significant pleural effusion. This study was presented today 10/21/2024 for interpretation. Stat results provided at this time as requested by referring provider. Electronically signed by: Zena Diaz MD 10/21/2024 12:39 PM [facility]
[2024-10-21 08:35] VITALS: BP 151/90; PULSE 80; RESP 20; TEMP 36.6; O2SAT 97; BMI 26.6
--- NOTE | 2024-10-21 08:42 | ECG_ITS ---
Test Reason : SOB/ cp Blood Pressure : / mmHG Vent. Rate : 074 BPM Atrial Rate : 074 BPM P-R Int : 178 ms QRS Dur : 092 ms QT Int : 372 ms P-R-T Axes : 038 -01 016 degrees QTc Int : 412 ms Normal sinus rhythm Possible Inferior infarct , age undetermined Abnormal ECG When compared with ECG of 19-NOV-2022 16:05, T wave inversion now evident in Anterior leads Referred By: Generic ED Physician Electronically Signed By:CARSON MULLIGAN MD
--- NOTE | 2024-10-21 09:40 | ED_ITS ---
HPI - General Adult General Chief complaint: General Medical Stated complaint: Swollen L eye, Face pain Time Seen by Provider: 10/21/24 09:11 Source: patient and family (significant other) Mode of arrival: ambulatory Limitations: no limitations History of Present Illness ED Provider: JOSELYN CARTER PA-C HPI narrative: 54 year old female with pmhx significant for HTN presents to the ED today for evaluation of left eye swelling on waking this morning. She reports removing her contacts last night and upon waking this morning, her eye was crusted shut and she noted swelling to her lower eyelid. Denies any pain however does state the eye feels irritated. No FB sensation. She does not recall scratching or getting anything in the eye. She does wear contact lenses. Admits to recent URI. Denies fever, chills, vision changes, ear pain, sinus pain, congestion. Denies trauma/ injury to the eye. Vaccinations UTD. Additionally reports dry cough x3 months. States her throat and chest feel sore from coughing so much. Denies any chest pain, palpitations or sob. Denies hemoptysis. Denies recent travel or long car rides. Denies calf pain/swelling. Related Data Previous Rx's ?Medication ?Instructions ?Recorded acetaminophen 500 mg tablet 500 mg PO Q6H PRN fever or pain 11/19/22 (Tylenol Extra Strength) #14 tabs benzonatate 100 mg capsule 100 mg PO TID PRN cough #14 caps 11/19/22 fluticasone propionate 50 2 spray intranasal DAILY #16 grams 11/19/22 mcg/actuation nasal spray,suspension (Flonase Allergy Relief) ondansetron 4 mg disintegrating 4 mg PO Q8H PRN nausea and 11/19/22 tablet vomiting #10 tabs cyclobenzaprine 5 mg tablet 5 mg PO TID PRN muscle spasm 7 04/29/23 days #21 tabs prednisone 20 mg tablet 20 mg PO DAILY 7 days #7 tabs 04/29/23 ketorolac 10 mg tablet 10 mg PO Q8H PRN pain #10 tabs 04/17/24 levofloxacin 500 mg tablet 500 mg PO DAILY #9 tabs 04/17/24 metronidazole 500 mg tablet 500 mg PO BID #19 tabs 04/17/24 polyethylene glycol 3350 17 17 g PO DAILY PRN laxative effect 04/17/24 gram/dose oral powder (Miralax) #238 grams benzonatate 100 mg capsule 100 mg PO BID PRN cough #20 caps 10/21/24 ciprofloxacin HCl 0.3 % eye drops See Rx Instructions 10/21/24 ophthalmic-Left .COMPLEX #10 mL Allergies Allergy/AdvReac Type Severity Reaction Status Date / Time No Known Allergies Allergy Verified 10/21/24 08:40 Review of Systems 2 Review of Systems: Constitutional: No fever, chills, fatigue, night sweats, weight changes ENT/Mouth: No ear pain, hearing loss, nasal congestion, sinus pain, rhinorrhea, sore throat Eyes: No eye pain, redness, vision changes, +irrtation, +discharge, +swelling Cardio: No chest pain, palpitations, MANN, orthopnea, peripheral edema Pulm: No SOB, cough, sputum, wheezing, dyspnea, hemoptysis GI: No nausea, vomiting, hematemesis, abdominal pain, diarrhea, constipation, hematochezia, melena : No irregular bleeding, dysuria, frequency, urgency, hesitancy, hematuria, flank pain, urinary flow changes, urinary incontinence or retention MSK: No back pain, neck pain, joint pain, myalgias Skin: No lesions, rashes Neuro: No weakness, numbness, paresthesias, LOC, dizziness, headache Psych: No anxiety/panic, depression, SI/HI, AH/VH All other systems reviewed and are negative. [facility] Past Medical History Attestation statement: The following information was validated with the patient. Source: old records reviewed and nursing notes reviewed Medical History Hypertension Social History Social History Alcohol intake: unknown Advance Directives: No Advance Directives Information Provided: Yes Do you have a plan to hurt others: No Plan Physical Exam ED Vital Signs: Vital Signs - 24 hr 10/21/24 08:35 10/21/24 13:31 Temperature 97.9 F 97.9 F Pulse Rate 80 80 Respiratory Rate 20 20 Blood Pressure 151/90 H 151/90 H Pulse Oximetry 97 97 Oxygen Delivery Method Room Air Room Air BMI result Body Mass Index 26.6 hypertensive, vitals otherwise wnl. afebrile. General: Well appearing, in no acute distress. Skin: Warm, dry, intact. No rashes or lesions. Head: Normocephalic, atraumatic. EENT: Hearing is intact b/l. Moist mucous membranes.? Posterior oropharynx without erythema or edema. No tonsillar exudates. Uvula midline. Controlling secretions and speaking in complete sentences. Mild swelling noted to left lower eyelid. No enophthalmous or exopthalmous. EOMs intact without pain or entrapment. PERRLA. Positive photophobia. No obvious foreign body or abrasion. Noted conjunctival injection to left eye. No hazy cornea. IOP OD 12, IOP OS 15. On tetracaine exam, no reuptake to suggest abrasion or fb. no ulceration. no dendritic lesions. Neck: Supple without LAD Cardiac: Chest wall symmetric. RRR. No reproducible chest wall tenderness. Lungs: Normal respiratory effort without accessory muscle use. CTA bilaterally Ext: Upper and lower extremities atraumatic, without tenderness, deformity, swelling or erythema Neuro: AOx3. Normal speech. Ambulating with steady gait. Psych: Appropriate mood and affect. Responds appropriately to questions. Medications Administered Discontinued Medications Generic Name Dose Route Start Last Admin Trade Name Freq PRN Reason Stop Dose Admin Fluorescein Sodium 1 strip 10/21/24 09:47 10/21/24 10:33 Fluorescein Sodium Strip EYE-LEFT 10/21/24 09:48 1 strip ONCE ONE Administration Tetracaine HCl 1 drop 10/21/24 09:47 10/21/24 10:33 Tetracaine Hcl/Pf 0.5% Oph Junie 4 Ml Drops EYE-LEFT 10/21/24 09:48 1 drop ONCE ONE Administration Medical Decision Making Medical Decision Making [facility] Narrative: 54 year old female with pmhx significant for HTN presents to the ED today for evaluation of left eye swelling on waking this morning. Hypertensive, vitals otherwise wnl. She is nontoxic appearing and in NAD. Exam significant for mild swelling noted to left lower eyelid. No enophthalmous or exopthalmous. EOMs intact without pain or entrapment. PERRLA. Positive photophobia. No obvious foreign body or abrasion. Noted conjunctival injection to left eye. No hazy cornea. IOP OD 12, IOP OS 15. On tetracaine exam, no reuptake to suggest abrasion or fb. no ulceration. no dendritic lesions. Differential diagnosis includes viral vs bacterial conjunctivitis, corneal abrasion, viral syndrome, strep throat, anemia, electrolyte abnormality, ACS, arrhythmia, pneumonia, bronchitis. Unlikely mono, [employer], retropharyngeal abscess, epiglottitis, pleural effusion, periorbital or orbital cellulitis, iritis, keratitis, corneal ulceration, foreign body Plan for labs, viral and strep swabs, EKG, cxr, and re-evaluation. Differential Diagnosis Differential Diagnoses: The differential diagnosis associated with the presentation includes as above. Admission/Observation Not indicated. Lab Data MDM Lab Attestation statement: I reviewed the patient's lab results. as above. 10/21/24 09:56 10/21/24 09:56 Labs: Lab Results 10/21/24 10/21/24 Range/Units 09:02 09:56 WBC 7.5 (4.8-10.8) X10*3/uL RBC 4.71 (4.20-5.50) X10*6/uL Hgb 11.9 L (12.0-16.0) g/dl Hct 37.6 (37.0-47.0) % MCV 79.8 L (80.0-98.0) fL MCH 25.3 L (27.0-33.0) pg MCHC 31.6 (31.0-35.0) g/dl RDW 14.9 (11.0-16.0) % Plt Count 209 (160-400) X10*3/uL MPV 11.0 (9.4-12.3) fL Immature Gran % (Auto) 0.1 (0.0-0.4) % Neut % (Auto) 69.9 (45-73) % Lymph % (Auto) 18.6 L (20-40) % [place] % (Auto) 8.6 (2-11) % Eos % (Auto) 2.4 (0-4) % Baso % (Auto) 0.4 (0-2) % Lymph # (Auto) 1.4 (1.2-4.9) X10*3/uL [place] # (Auto) 0.7 (0.1-1.2) X10*3/uL Eos # (Auto) 0.2 (0.0-0.4) X10*3/uL Baso # (Auto) 0.0 (0.0-0.2) X10*3/uL Abs Immat Gran (auto) 0.01 (0.00-0.03) X10*3/uL Absolute Neuts (auto) 5.3 (2.0-8.3) x10*3/uL Absolute Nucleated RBC 0.000 (0.0-0.012) X10*3/uL Nucleated RBC % (auto) 0.0 (0.0-0.2) /100WBC Sodium 141 (135-145) mmol/L Potassium 3.6 (3.3-5.1) mmol/L Chloride 107 (96-108) mmol/L Carbon Dioxide 26 (22-29) mmol/L Anion Gap 12 (12-20) BUN 9 (9-16) mg/dL Creatinine 0.70 (0.5-1.4) mg/dL Estim Creat Clear Calc 85.0 Estimated GFR > 60 Random Glucose 95 (60-115) mg/dL Calcium 8.9 (8.4-10.2) mg/dL Magnesium 1.9 (1.6-2.6) mg/dL Total Bilirubin 0.2 (0.0-1.0) mg/dL AST 19 (5-31) U/L ALT 17 (0-31) U/L Alkaline Phosphatase 88 (39-117) U/L Troponin I High Sens < 2.7 (<3.5-17.0) ng/L Total Protein 7.3 (6.5-8.0) g/dL Albumin 4.0 (3.5-5.0) g/dL Influenza Type A (PCR) NEGATIVE (Negative) Influenza Type B (PCR) NEGATIVE (Negative) RSV RNA Qual (PCR) NEGATIVE (Negative) SARS-CoV-2 RNA (RT-PCR) NEGATIVE (Negative) S. pyogenes GrpA TAMICA Negative (Negative) Independent Interpretation I performed an independent interpretation of an: Plain X-Ray Interpretation: Chest x-ray without infiltrate or consolidation Radiology Impression Discussion of test interpretation with radiology: I have reviewed the radiologist's reading. Radiologist Impression: EXAMINATION: XR CHEST CLINICAL INFORMATION: Cough. COMPARISON: 11/19/2022 medications TECHNIQUE: 2 views of the chest were obtained. FINDINGS: There is no gross pneumothorax. Heart size within normal limits. Surgical clips right upper quadrant. Mild multilevel degenerative changes in the thoracic spine. No significant pleural effusion. No focal consolidation. XR/XR chest 2V IMPRESSION: No focal consolidation. No significant pleural effusion. This study was presented today 10/21/2024 for interpretation. Stat results provided at this time as requested by referring provider. Electronically signed by: Zena Diaz MD 10/21/2024 12:[address] [facility] Independent Historian Clinical information obtained from an independent historian. History obtained from or confirmed by: Spouse External Record Review External record reviewed: Inpatient record, Office record, Outpatient record, Prior outpatient labs, Prior outpatient radiology, Primary care record and Outside ED record Prescription Management I considered prescription management with: Other (Ciprofloxacin eye drops) Social Determinants Patient?s care significantly limited by Social Determinants of Health including: Other Social Determinant of Health Critical Care Time Critical Care Time Critical Care Time: No Discharge Plan Discharge Clinical Impression: Bacterial conjunctivitis Patient Disposition: Home, Self-Care Instructions: Ciprofloxacin (Into the eye), Conjunctivitis (ED) Additional Instructions: Your blood work today is reassuring You tested negative for COVID, flu, RSV, strep throat Your chest x-ray is normal Your ekg is normal Your heart enzymes are normal You have an infection of your left eye called bacterial conjunctivitis. Treatment for this is with antibiotics. Ciprofloxacin eye drops have been sent to your pharmacy. Use these as directed. Instill 1 to 2 drops into the conjunctival sac every 2 hours while awake for 2 days and 1 to 2 drops every 4 hours while awake for the next 5 days. Do not wear contacts until it's been at least 24 hours after your last antibiotic drop. Change to a new pair of contacts. Apply warm compresses to the eye multiple times a day. I have also sent tesjuana medina to your pharmacy for you to take for your cough. Follow up with PCP as needed. Return with new or worsening symptoms. In the case of an emergency call 911. Prescriptions: New ciprofloxacin HCl 0.3 % drops See Rx Instructions .ROUTE .COMPLEX Qty: 10 0RF Rx Instructions: put 1-2 drps in affected eye(s) every 2hr up to 8 times/day x2days; then 4 times/day x5days benzonatate 100 mg capsule 100 mg PO BID PRN (Reason: cough) Qty: 20 0RF No Action acetaminophen [Tylenol Extra Strength] 500 mg tablet 500 mg PO Q6H PRN (Reason: fever or pain) Qty: 14 0RF benzonatate 100 mg capsule 100 mg PO TID PRN (Reason: cough) Qty: 14 0RF fluticasone propionate [Flonase Allergy Relief] 50 mcg/actuation spray,suspension 2 spray intranasal DAILY Qty: 16 0RF Rx Instructions: administer into each nostril ondansetron 4 mg tablet,disintegrating 4 mg PO Q8H PRN (Reason: nausea and vomiting) Qty: 10 0RF levofloxacin 500 mg tablet 500 mg PO DAILY Qty: 9 0RF metronidazole 500 mg tablet 500 mg PO BID Qty: 19 0RF ketorolac 10 mg tablet 10 mg PO Q8H PRN (Reason: pain) Qty: 10 0RF Rx Instructions: maximum total duration of 5 days from all oral, intranasal, or parenteral formulations. Do not use this medication with NSAIDs, only Tylenol if needed polyethylene glycol 3350 [Miralax] 17 gram/dose powder 17 g PO DAILY PRN (Reason: laxative effect) Qty: 238 0RF cyclobenzaprine 5 mg tablet 5 mg PO TID PRN (Reason: muscle spasm) 7 Days Qty: 21 0RF prednisone 20 mg tablet 20 mg PO DAILY 7 Days Qty: 7 0RF [place] [facility] [place] [facility] [place] [facility] [place] [facility] [place] [facility] [place] Group] Interventions: ED Discharge Assessment Last Done: 10/21/24 13:31 Discharge Date/Time: 10/21/24 13:31 Print Language: Mongolian
[2024-10-21 09:44] LABS: IDNOW Serial# 08D9AD1C; Strep A Nucleic Acid Negative (Negative)
[2024-10-21 09:53] LABS: Influenza A PCR NEGATIVE (Negative); Influenza B PCR NEGATIVE (Negative); Resp Syncy Virus RNA Qual PCR NEGATIVE (Negative); SARS COV2 PCR INHOUSE NEGATIVE (Negative)
[2024-10-21 10:00] LABS: MANUAL DIFF FLAG NO
[2024-10-21 10:02] LABS: Basophils Percent Auto 0.4 % (0-2); Eosinophils Absolute Auto 0.2 X10*3/uL (0.0-0.4); Eosinophils Percent Auto 2.4 % (0-4); Hematocrit 37.6 % (37.0-47.0); Hemoglobin 11.9 g/dl (12.0-16.0); Imm Gran Abs Auto 0.01 X10*3/uL (0.00-0.03); Imm Gran Pct Auto 0.1 % (0.0-0.4); Lymphocytes Absolute Auto 1.4 X10*3/uL (1.2-4.9); Lymphocytes Percent Auto 18.6 % (20-40); Mean Corpuscular HGB Conc 31.6 g/dl (31.0-35.0); Mean Corpuscular Hemoglobin 25.3 pg (27.0-33.0); Mean Corpuscular Volume 79.8 fL (80.0-98.0); Monocytes Absolute Auto 0.7 X10*3/uL (0.1-1.2); Monocytes Percent Auto 8.6 % (2-11); Neutrophils Absolute Auto 5.3 x10*3/uL (2.0-8.3); Neutrophils Percent Auto 69.9 % (45-73); Platelet Count 209 X10*3/uL (160-400); Red Blood Count 4.71 X10*6/uL (4.20-5.50); Red Cell Distribution Width 14.9 % (11.0-16.0); White Blood Count 7.5 X10*3/uL (4.8-10.8)
[2024-10-21 10:26] LABS: Anion Gap 12 (12-20); Aspartate Amino Transferase 19 U/L (5-31); Bilirubin Total 0.2 mg/dL (0.0-1.0); Blood Urea Nitrogen 9 mg/dL (9-16); Calcium 8.9 mg/dL (8.4-10.2); Carbon Dioxide 26 mmol/L (22-29); Chloride 107 mmol/L (96-108); Estimated Glomerular Filt Rate > 60; Glucose Random 95 mg/dL (60-115); Magnesium 1.9 mg/dL (1.6-2.6); Potassium 3.6 mmol/L (3.3-5.1); Sodium 141 mmol/L (135-145); Total Protein 7.3 g/dL (6.5-8.0)
[2024-10-21 10:27] LABS: Troponin-I High Sensitivity < 2.7 ng/L (<3.5-17.0)
[2024-10-21] MEDS: Fluorescein Sodium STRIP 1 STRIP EYE-LEFT (10:33)
[2024-10-21] MEDS: Tetracaine HCl/PF 0.5% Oph Sol 4 ML DROPS 1 DROP EYE-LEFT (10:33)
[2024-10-21 10:37] LABS: Alanine Aminotransferase 17 U/L (0-31); Alkaline Phosphatase 88 U/L (39-117)
[2024-10-21 13:31] VITALS: BP 151/90; PULSE 80; RESP 20; TEMP 36.6; O2SAT 97
== END 2024-10-21 13:31 | disposition home or self-care (01) ==
PROVIDERS: Physician Assistant Medical; Emergency Provider Emergency Medicine
DX: H10.32 Unspecified acute conjunctivitis, left eye (principal); R06.02 Shortness of breath; R07.89 Other chest pain; Z03.818 Encounter for observation for suspected exposure to other biological agents ruled out
CPT/HCPCS: 0241U; 36415; 71046; 80053; 83735; 84484; 85025; 87651; 93005; 99283

== ENCOUNTER → 2024-10-21 08:42 | Outpatient (BNV) | payer MEDICAID, SELFPAY | PROVIDERS: Emergency Provider Emergency Medicine; Visit Provider Internal Medicine Cardiovascular Disease | DX: R94.31 Abnormal electrocardiogram [ECG] [EKG] (principal) | CPT/HCPCS: 93010 ==

== ENCOUNTER 2025-03-06 18:16 | Emergency (ER) | payer MEDICAID, SELFPAY ==
--- NOTE | ~2025-03-06 | XR_ITS ---
CLINICAL HISTORY: fall on stairs 4 view, chest and left ribs Comparison: None Findings: No fractures or dislocations. Normal size heart. No consolidation, significant pleural effusion or pneumothorax. Right upper quadrant surgical clips. IMPRESSION: 1. No acute fractures. This document has been electronically signed by: Ana Lilia Li MD on 03/06/2025 19:02:23
--- NOTE | ~2025-03-06 | XR_ITS ---
CLINICAL HISTORY: low back pain, fall down 3 stairs 3 views lumbar spine Comparison: None Findings: Lumbar alignment is maintained. Vertebral body height is maintained. No acute fracture is identified. No significant degenerative changes. Bilateral pelvic phleboliths. Right upper quadrant surgical clips. IMPRESSION: No acute findings. This document has been electronically signed by: Ana Lilia Li MD on 03/06/2025 19:04:02
[2025-03-06 18:20] VITALS: BP 149/92; PULSE 85; RESP 16; TEMP 36.8; O2SAT 95; BMI 23.9
--- NOTE | 2025-03-06 18:20 | ED.BACK ---
HPI - Back Pain/Injury General Chief Complaint: Back Pain/Injury Stated Complaint: lower back pain fall 3 days ago Time Seen by Provider: 03/06/25 22:01 Source: patient Mode of arrival: ambulatory Limitations: no limitations History of Present Illness ED Provider: martita christensen np HPI Narrative: Patient is a 54-year-old female who presents emergency department for evaluation of left-sided back pain. She reports a mechanical trip and fall down 3 stairs 3 days ago. There was no associated head strike or loss of consciousness. She has trialed an anti-inflammatory and Tylenol for pain during the first 2 days never which helped her pain. She continues to have persistent pain that is radiating to her left leg. She does admit to a history of chronic low back pain but has acutely increased since the fall. Denies recent fevers, chills, burning with micturition, urinary frequency/urgency/hesitancy, bladder or bowel dysfunction, numbness or tingling of the perineum or bilateral legs. Denies any recent surgical procedures, any known immune compromising conditions, personal history of cancer, or IV drug usage. MD elicited complaint: back pain Related Data Previous Rx's ?Medication ?Instructions ?Recorded acetaminophen 500 mg tablet 500 mg PO Q6H PRN fever or pain 11/19/22 (Tylenol Extra Strength) #14 tabs benzonatate 100 mg capsule 100 mg PO TID PRN cough #14 caps 11/19/22 fluticasone propionate 50 2 spray intranasal DAILY #16 grams 11/19/22 mcg/actuation nasal spray,suspension (Flonase Allergy Relief) ondansetron 4 mg disintegrating 4 mg PO Q8H PRN nausea and 11/19/22 tablet vomiting #10 tabs cyclobenzaprine 5 mg tablet 5 mg PO TID PRN muscle spasm 7 04/29/23 days #21 tabs prednisone 20 mg tablet 20 mg PO DAILY 7 days #7 tabs 04/29/23 ketorolac 10 mg tablet 10 mg PO Q8H PRN pain #10 tabs 04/17/24 levofloxacin 500 mg tablet 500 mg PO DAILY #9 tabs 04/17/24 metronidazole 500 mg tablet 500 mg PO BID #19 tabs 04/17/24 polyethylene glycol 3350 17 17 g PO DAILY PRN laxative effect 04/17/24 gram/dose oral powder (Miralax) #238 grams benzonatate 100 mg capsule 100 mg PO BID PRN cough #20 caps 10/21/24 ciprofloxacin HCl 0.3 % eye drops See Rx Instructions 10/21/24 ophthalmic-Left .COMPLEX #10 mL cyclobenzaprine 10 mg tablet 10 mg PO TID PRN muscle spasm #14 03/07/25 tabs Allergies Allergy/AdvReac Type Severity Reaction Status Date / Time No Known Allergies Allergy Verified 03/06/25 18:22 Review of Systems Review of Systems: Yes all other systems are reviewed and are negative [facility] Past Medical History Attestation statement: The following information was validated with the patient. Source: old records reviewed Medical History Hypertension Social History Social History Alcohol intake: unknown Smoked in Last 30 Days: No Advance Directives: No Advance Directives Information Provided: Yes Do you have a plan to hurt others: No Plan Patient : No Physical Exam Vital Signs: Vital Signs: Last Vital Signs Temp 98.2 F 03/06/25 18:20 Pulse 85 03/06/25 18:20 Resp 16 03/06/25 18:20 BP 149/92 H 03/06/25 18:20 Pulse Ox 95 03/06/25 18:20 O2 Del Method Room Air 03/06/25 18:20 BMI result Body Mass Index 23.9 Appearance: Alert.?Oriented to person, place and time. No acute distress.?Normal affect. Eyes: Pupils equal, round and reactive to light.? ENT: Pharynx normal.?? Neck: Normal inspection.? Neck supple.?? CVS: Heart sounds normal. Normal heart rate and rhythm.? Pulses normal; bilateral radial pulses 2+, bilateral posterior tibial/dorsalis pedis pulses 2+.? Respiratory: No respiratory distress.? Lung sounds clear to auscultation bilaterally?? Abdomen: Soft and non-tender. Normoactive bowel sounds. No pulsatile mass.?? Skin: Skin warm and dry.? Normal skin color.? Normal skin turgor.?? Extremities: No lower extremity edema.? No calf ttp? Back: + moderate left paraspinal muscular tenderness from lumbar region to coccyx. No CVA tenderness. No midline spinal tenderness, step-off's, or deformity. Full ROM intact in bilateral lower extremities. Straight leg test negative on right; Straight leg test positive on left. No rashes, lesions, areas of induration or fluctuance, or signs of infection noted., Neuro: Moves all extremities spontaneously. 5/5 strength in hip extension/flexion, abduction, adduction. Sensation to light touch intact bilaterally. Patellar and Achilles reflex 2+ bilaterally. No ataxia, gait normal and steady.. No focal neuro deficits. Course Course Course Narrative: This is a Rapid Medical Exam performed in triage by Nohemi Mckeon PA-C. Full HPI, ROS and PE to be performed by primary ED provider. 54 yo F presenting to the ED c/o low back pain radiating down LLE s/p trip & fall down 3 stairs 3 days ago. denies head trauma or LOC. denies incontinence/retention PE: + left lumbar MSK reproducible tenderness. + left lower rib/posterior lateral reproducible tenderness Plan: XRs, pain control Medications Administered Discontinued Medications Generic Name Dose Route Start Last Admin Trade Name Freq PRN Reason Stop Dose Admin Cyclobenzaprine HCl 10 mg 03/06/25 22:33 03/06/25 22:47 Cyclobenzaprine Hcl 10 Mg Tablet PO 03/06/25 22:34 10 mg ONCE ONE Administration Ketorolac Tromethamine 15 mg 03/06/25 22:41 03/06/25 22:47 Ketorolac Tromethamine 15 Mg/Ml Vial IM 03/06/25 22:42 15 mg ONCE ONE Administration Medical Decision Making Medical Decision Making [facility] Narrative: Patient is a 54 old female with past medical history of hypertension who presents emergency department for evaluation of acute on chronic left lower back pain s/p mechanical fall 3 days ago. XR obtained prior to my assumption of care of the ribs as well as a lumbar spine is without fracture, subluxation. She has diffuse musculoskeletal tenderness upon palpation of the left lower back. She does endorse radiation of pain to the left lower extremity consistent with a radiculopathy. Reviewed with patient can not completely exclude herniated disc with XR imaging. On neurological exam there are no deficits. No indication for emergent MRI imaging, Exam findings not consistent with cauda equina syndrome. No recent fevers, unintentional weight loss, history of IVDA, high-risk past medical history, immunosuppression, recent surgery or lumbar puncture to suggest spinal infection, epidural abscess, malignancy. Not consistent with AAA or dissection. No genitourinary symptoms, afebrile, no CVA tenderness, unlikely urinary tract infection, pyelonephritis, renal colic. Will trial ketorolac and cyclobenzaprine in the emergency department. Differential Diagnosis Differential Diagnoses: The differential diagnosis associated with the presentation includes ( see narrative above) Admission/Observation Consideration of admission/observation: Escalation of care including admission/observation considered ( see narrative above) Independent Interpretation I performed an independent interpretation of an: Plain X-Ray (See narrative above) Radiology Impression Discussion of test interpretation with radiology: I have reviewed the radiologist's reading. Radiologist Impression: 3 views lumbar spine Comparison: None Findings: Lumbar alignment is maintained. Vertebral body height is maintained. No acute fracture is identified. No significant degenerative changes. Bilateral pelvic phleboliths. Right upper quadrant surgical clips. IMPRESSION: No acute findings. 4 view, chest and left ribs Comparison: None Findings: No fractures or dislocations. Normal size heart. No consolidation, significant pleural effusion or pneumothorax. Right upper quadrant surgical clips. IMPRESSION: 1. No acute fractures. External Record Review External record reviewed: Outpatient record Prescription Management I considered prescription management with: Pain Medication Discharge Plan Discharge Clinical Impression: Lumbar radiculopathy Patient Disposition: Home, Self-Care Instructions: Lumbar Radiculopathy (ED), Lower Back Exercises (ED) Additional Instructions: Follow-up with your primary care doctor. You can take ibuprofen 200 mg, 3 tablets (600mg) every 6-8 hours as needed for pain, in addition to Tylenol 500 mg, 2 tablets (1,000mg) every 4-6 hours as needed for pain, but not to exceed 3 doses daily (3,000mg).? Her pain unrelieved by either the above I have sent a prescription for cyclobenzaprine to your pharmacy. This is a muscle relaxant. It may make you drowsy. You should not drive, drink alcohol, or work while taking this medication. You may return to emergency department with any new or worsening symptoms or concerns. Prescriptions: New cyclobenzaprine 10 mg tablet 10 mg PO TID PRN (Reason: muscle spasm) Qty: 14 0RF No Action acetaminophen [Tylenol Extra Strength] 500 mg tablet 500 mg PO Q6H PRN (Reason: fever or pain) Qty: 14 0RF benzonatate 100 mg capsule 100 mg PO TID PRN (Reason: cough) Qty: 14 0RF fluticasone propionate [Flonase Allergy Relief] 50 mcg/actuation spray,suspension 2 spray intranasal DAILY Qty: 16 0RF Rx Instructions: administer into each nostril ondansetron 4 mg tablet,disintegrating 4 mg PO Q8H PRN (Reason: nausea and vomiting) Qty: 10 0RF levofloxacin 500 mg tablet 500 mg PO DAILY Qty: 9 0RF metronidazole 500 mg tablet 500 mg PO BID Qty: 19 0RF ketorolac 10 mg tablet 10 mg PO Q8H PRN (Reason: pain) Qty: 10 0RF Rx Instructions: maximum total duration of 5 days from all oral, intranasal, or parenteral formulations. Do not use this medication with NSAIDs, only Tylenol if needed polyethylene glycol 3350 [Miralax] 17 gram/dose powder 17 g PO DAILY PRN (Reason: laxative effect) Qty: 238 0RF ciprofloxacin HCl 0.3 % drops See Rx Instructions .ROUTE .COMPLEX Qty: 10 0RF Rx Instructions: put 1-2 drps in affected eye(s) every 2hr up to 8 times/day x2days; then 4 times/day x5days benzonatate 100 mg capsule 100 mg PO BID PRN (Reason: cough) Qty: 20 0RF cyclobenzaprine 5 mg tablet 5 mg PO TID PRN (Reason: muscle spasm) 7 Days Qty: 21 0RF prednisone 20 mg tablet 20 mg PO DAILY 7 Days Qty: 7 0RF Referrals: Shubham Loco PA [Primary Care Provider] - Print Language: Luxembourgish
[2025-03-06] MEDS: Ketorolac Tromethamine 15 MG/ML VIAL IM (22:47)
[2025-03-06] MEDS: Cyclobenzaprine HCl 10 MG TABLET PO (22:47)
--- NOTE | 2025-03-06 22:55 | PC.NURSE ---
pt medicated per MAR
[2025-03-07 00:46] VITALS: BP 149/92; PULSE 85; RESP 16; TEMP 36.8; O2SAT 95
--- NOTE | 2025-03-07 00:49 | PC.NURSE ---
While RN in discharging another patien this patient approached in the doorway asking when she would be discharged and what she was waiting on. This RN informed the pt that discharge papers had been printed and would be provided after the current discharge and time with the other patient was complete. Pt verbalized understanding and did not say or ask anything further. Upon RN's arrival to bedside to review discharge papers the patient was not noted to be in the room or in any of the bathrooms. RN did not have an opportunity to review or provided docs. Pt was well appearing, without distress and ambulating independently at last visualization.
== END 2025-03-07 00:51 | disposition home or self-care (01) ==
PROVIDERS: Emergency Provider Emergency Medicine Emergency Medical Services; PCP Physician Assistant
DX: M54.16 Radiculopathy, lumbar region (principal); M54.50 Low back pain, unspecified; Z91.81 History of falling; I10 Essential (primary) hypertension; Z79.899 Other long term (current) drug therapy
CPT/HCPCS: 71101; 72100; 96372; 99284; J1885

== ENCOUNTER → 2025-03-06 18:21 | Outpatient (BNV) | payer MEDICAID, SELFPAY | PROVIDERS: PCP Physician Assistant; Visit Provider Specialist | DX: R07.89 Other chest pain (principal); M54.9 Dorsalgia, unspecified | CPT/HCPCS: 71101; 72100 ==